=== PATIENT | male | born 1970 | race Caucasian/White ===

== ENCOUNTER → 2017-04-18 | Outpatient (CLI) | payer OTHER ==
[~2017-04-18] MED LIST: CATHETER FLUSH 10 ML SYR IV PRN; REGADENOSON 0.4 MG/5 ML SYR (LEXISCAN) IV ONE
[2017-04-18 13:30] VITALS: BP 209/116
[2017-04-18 13:34] VITALS: BP 205/115
--- NOTE | 2017-04-19 16:40 | STRESS TEST ---
DATE OF SERVICE: 04/18/2017 RESTING AND POST REGADENOSON TECHNETIUM-99M TETROFOSMIN SPECT CT IMAGING ORDERING PHYSICIAN: Dr. Figueroa. CLINICAL DIAGNOSES: Chest discomfort, hypertension, diabetes, obesity. Baseline images were carried out after injection of 10.11 mCi of technitium-99m tetrofosmin. This was followed by 0.4 mg regadenoson and 29.4 mCi of technitium-99m tetrofosmin for stress imaging. The electrocardiogram showed sinus rhythm with nonspecific T-wave abnormality which persisted throughout the study. The patient tolerated the procedure well and did not report any significant symptoms. Review of images at rest and following stress does not indicate any significant perfusion defects consistent with significant myocardial ischemia or infarction. Count uptake appears diminished and the inferior wall both at rest and following regadenoson infusion. This appears to be due to diaphragmatic attenuation. Gated images show normal regional wall motion. Left ventricular ejection fraction is calculated to be 65%. Left ventricular end diastolic volume is 129 mL. TID is absent (1.03). CONCLUSIONS: 1. No evidence of any significant myocardial ischemia or infarction on this study. 2. Normal regional wall motion. 3. Normal global left ventricular systolic function with ejection fraction of 65%. 4. Mild to moderate cardiomegaly. Job ID: [id number] DocumentID: [id number] Dictated Date: 04/18/2017 18:24:47 Material Flow Analyst Date: 04/19/2017 01:12:22 Dictated By: KIM FIGUEROA MD, MA, FACP, FACC,
== END ==
LOC: CARD 10:42
PROVIDERS: ATTEND Internal Medicine Cardiovascular Disease
DX: I10 Essential (primary) hypertension (principal); E11.9 Type 2 diabetes mellitus without complications; E66.09 Other obesity due to excess calories; E78.1 Pure hyperglyceridemia; R74.8 Abnormal levels of other serum enzymes; R07.89 Other chest pain
CPT/HCPCS: 78452; 93017

== ENCOUNTER 2019-12-13 13:26 | Inpatient (IN) | payer BC, OTHER ==
[2019-12-13] VITALS (8 sets, daily range): BP systolic 161–204; BP diastolic 88–127
[~2019-12-13] VITALS: Ht 182 cm; Wt 125.2 kg
[2019-12-13] MEDS ORDERED: ASPIRIN 81 MG CHEW (CHILDREN'S ASA) PO ONE (13:45)
[2019-12-13] MEDS: NITROGLYCERIN 0.4 MG SL TABS BTL 25'S SL PRN ×2 (13:51→14:12)
--- NOTE | 2019-12-13 13:56 | ED Chest Pain ---
General Chief Complaint: Cardiac/General Problems Stated Complaint: BP ISSUES Nursing Triage Note: PT TO ED W/ C/O ELEVATED BLOOD PRESSURE, RODRIGUEZ ET CHEST PRESSURE ONSET DAILY, WORSE TODAY AFTER BEING SEEN AT [facility] Nursing Sepsis Screen: No Definite Risk Source: patient Exam Limitations: no limitations History of Present Illness Date Seen by Provider: Dec 13, 2019 Time Seen by Provider: 13:50 Initial Comments To ER with hypertension and chest tightness sent over from [facility]. He is on a couple of blood pressure medications but "just hasn't been taking them" for about a month. He's been focusing on his diabetes and getting control of it he states. During his primary care visit this morning he was noted to have blood pressure of 220 systolic with complaints of recurrent chest tightn ess and headache. He's been having the chest tightness intermittently for about a month. He had a negative stress test done here by Dr. Figueroa in March 2017. Timing/Duration: changing over time, intermittent Severity/Quality: moderate Location: central Radiation: no radiation Activities at Onset: none ASA po COTTON TIER: No NTG SL COTTON TIER: No Allergies and Home Medications Allergies Coded Allergies: codeine (Verified Allergy, Unknown, 12/13/19) N/V/D ondansetron (Verified Allergy, Unknown, 12/13/19) Patient Home Medication List Home Medication List Reviewed: Yes Review of Systems Review of Systems Constitutional: see HPI EENTM: No Symptoms Reported Respiratory: No Symptoms Reported Cardiovascular: See HPI, Chest Pain Gastrointestinal: See HPI Genitourinary: No Symptoms Reported Skin: no symptoms reported Psychiatric/Neurological: No Symptoms Reported Past Booxxmk-Ftblvb-Lrodme Hx Patient Social History Alcohol Use: Rarely Uses Recreational Drug Use: No Smoking Status: Never a Smoker Recent Foreign Travel: No Contact w/Someone Who Travel: No Recent Infectious Disease Expo: No Past Medical History Surgeries: Yes (LAP NISSIN) Gallbladder Respiratory: Yes Sleep Apnea Currently Using CPAP: Yes Cardiac: Yes Hypertension Neurological: No Genitourinary: No Gastrointestinal: Yes Gastroesophageal Reflux Musculoskeletal: No Endocrine: Yes Diabetes, Insulin dep HEENT: No Cancer: No Psychosocial: No Integumentary: No Blood Disorders: No Physical Exam Vital Signs Vital Signs - First Documented 12/13/19 13:38 Temp 36.8 Pulse 94 Resp 20 B/P (MAP) 219/139 (165) Pulse Ox 96 O2 Delivery Room Air Capillary Refill : Less Than 3 Seconds Height, Weight, BMI Height: '" Weight: lbs. oz. kg; 23.00 BMI Method: General Appearance: No Apparent Distress, WD/WN Respiratory: No Accessory Muscle Use, No Respiratory Distress Cardiovascular: Regular Rate, Rhythm, Normal Peripheral Pulses Gastrointestinal: Non Tender, Soft Neurologic/Psychiatric: Alert, Oriented x3 Skin: Normal Color, Warm/Dry Progress/Results/Core Measures Results/Orders Lab Results Laboratory Tests Test 12/13/19 13:58 12/13/19 14:02 Range/Units White Blood Count 8.1 4.3-11.0 10^3/uL Red Blood Count 6.14 H 4.35-5.85 10^6/uL Hemoglobin 16.8 13.3-17.7 G/DL Hematocrit 48 40-54 % Mean Corpuscular Volume 78 L 80-99 FL Mean Corpuscular Hemoglobin 27 25-34 PG Mean Corpuscular Hemoglobin Concent 35 32-36 G/DL Red Cell Distribution Width 14.1 10.0-14.5 % Platelet Count 176 130-400 10^3/uL Mean Platelet Volume 10.7 H 7.4-10.4 FL Neutrophils (%) (Auto) 70 42-75 % Lymphocytes (%) (Auto) 20 12-44 % Monocytes (%) (Auto) 6 0-12 % Eosinophils (%) (Auto) 3 0-10 % Basophils (%) (Auto) 0 0-10 % Neutrophils # (Auto) 5.7 1.8-7.8 X 10^3 Lymphocytes # (Auto) 1.7 1.0-4.0 X 10^3 Monocytes # (Auto) 0.5 0.0-1.0 X 10^3 Eosinophils # (Auto) 0.3 0.0-0.3 10^3/uL Basophils # (Auto) 0.0 0.0-0.1 10^3/uL Prothrombin Time 12.7 12.2-14.7 SEC INR Comment 0.9 0.8-1.4 Activated Partial Thromboplast Time 29 24-35 SEC Sodium Level 137 135-145 MMOL/L Potassium Level 3.9 3.6-5.0 MMOL/L Chloride Level 104 98-107 MMOL/L Carbon Dioxide Level 23 21-32 MMOL/L Anion Gap 10 5-14 MMOL/L Blood Urea Nitrogen 20 H 7-18 MG/DL Creatinine 1.33 H 0.60-1.30 MG/DL Estimat Glomerular Filtration Rate 57 BUN/Creatinine Ratio 15 Glucose Level 508 *H 70-105 MG/DL Calcium Level 9.2 8.5-10.1 MG/DL Corrected Calcium 9.0 8.5-10.1 MG/DL Magnesium Level 1.9 1.6-2.4 MG/DL Total Bilirubin 0.7 0.1-1.0 MG/DL Aspartate Amino Transf (AST/SGOT) 30 5-34 U/L Alanine Aminotransferase (ALT/SGPT) 49 0-55 U/L Alkaline Phosphatase 113 40-136 U/L Myoglobin 42.1 10.0-92.0 NG/ML Troponin I 0.033 H <0.028 NG/ML B-Type Natriuretic Peptide 321.1 H <100.0 PG/ML Total Protein 7.2 6.4-8.2 GM/DL Albumin 4.3 3.2-4.5 GM/DL Urine Opiates Screen NEGATIVE NEGATIVE Urine Oxycodone Screen NEGATIVE NEGATIVE Urine Methadone Screen NEGATIVE NEGATIVE Urine Propoxyphene Screen NEGATIVE NEGATIVE Urine Barbiturates Screen NEGATIVE NEGATIVE Ur Tricyclic Antidepressants Screen NEGATIVE NEGATIVE Urine Phencyclidine Screen NEGATIVE NEGATIVE Urine Amphetamines Screen NEGATIVE NEGATIVE Urine Methamphetamines Screen NEGATIVE NEGATIVE Urine Benzodiazepines Screen NEGATIVE NEGATIVE Urine Cocaine Screen NEGATIVE NEGATIVE Urine Cannabinoids Screen NEGATIVE NEGATIVE My Orders Orders - BILL RODRIGUEZ APRN Cbc With Automated Diff (12/13/19 13:43) Magnesium (12/13/19 13:43) Chest 1 View, Ap/Pa Only (12/13/19 13:43) Ekg Tracing (12/13/19 13:43) Comprehensive Metabolic Panel (12/13/19 13:43) Myoglobin Serum (12/13/19 13:43) Protime With Inr (12/13/19 13:43) Partial Thromboplastin Time (12/13/19 13:43) O2 (12/13/19 13:43) Monitor-Rhythm Ecg Trace Only (12/13/19 13:43) Lipid Panel (12/14/19 06:00) Ed Iv/Invasive Line Start (12/13/19 13:43) Troponin I (12/13/19 13:43) Nitroglycerin 0.4 Mg Btl 25's (Nitrostat (12/13/19 13:45) Aspirin Chewable Tablet (Baby Aspirin Ch (12/13/19 13:45) Drug Screen Stat (Urine) (12/13/19 13:43) BNP (12/13/19 13:43) Metoprolol Tartrate Injection (Lopressor (12/13/19 14:45) Ns Iv 1000 Ml (Sodium Chloride 0.9%) (12/13/19 14:45) Insulin (Regular) Human (Humulin R (Per (12/13/19 14:45) Medications Given in ED Current Medications Medications Dose Ordered Sig/Master Route Start Time Stop Time Status Last Admin Dose Admin Aspirin 324 mg ONCE ONCE PO 12/13/19 13:45 12/13/19 13:46 DC 12/13/19 13:51 324 MG Insulin Human Regular 10 unit ONCE ONCE SC 12/13/19 14:45 12/13/19 14:47 DC 12/13/19 14:53 10 UNIT Metoprolol Tartrate 5 mg ONCE ONCE IV 12/13/19 14:45 12/13/19 14:47 DC 12/13/19 14:53 5 MG Nitroglycerin 0.4 mg UD PRN SL 12/13/19 13:45 12/13/19 15:44 DC 12/13/19 14:12 0.4 MG Vital Signs/I&O 12/13/19 13:38 Temp 36.8 Pulse 94 Resp 20 B/P (MAP) 219/139 (165) Pulse Ox 96 O2 Delivery Room Air Blood Pressure Mean: 165 Diagnostic Imaging Diagonstic Imaging: Xray, CT Comments NAME: PEPPER PHELPS [facility] REC#: [id number] PT STATUS: REG ER : 1970 PHYSICIAN: BILL RODRIGUEZ APRN ADMIT DATE: 12/13/19/ER Draft Date of Exam:12/13/19 CHEST 1 VIEW, AP/PA ONLY Indication: Hypertension. Findings: No focal consolidation. The heart size itself is probably within normal limits. There may be mild distention of the central vascularity. There is some crowding of the lung markings owing to poor inspiratory volume. Impression: Limited inspiratory volume across the lung markings, borderline vascular congestion, otherwise negative. Dictated on workstation # [id number] Dict: 12/13/19 1425 Trans: 12/13/[address] [facility] [id number] Interpreted by: LEXA JOHNSTON Electronically signed by: Departure Communication (Admissions) Time/Spoke to Admitting Phy: 15:[address] Cuellar and Dr plascencia. Will admit to ICU. 1443-his chest pain has reduced from a 12/29/00. Blood pressure has improved from 239/119 at triage down to a current 183/119. Heart rate is in the 80s. Sinus. Impression Primary Impression: Chest pain Qualified Codes: R07.9 - Chest pain, unspecified Additional Impressions: Uncontrolled diabetes mellitus Qualified Codes: E11.65 - Type 2 diabetes mellitus with hyperglycemia Hypertensive urgency Disposition: ADMITTED INPATIENT Condition: Critical Admissions Decision to Admit Reason: Admit from ER (General) Decision to Admit/Date: Dec 13, 2019 Time/Decision to Admit Time: 15:12 Departure-Patient Inst. Referrals: JUNIOR NARAYANAN MD (PCP/Family) Primary Care Physician BILL RODRIGUEZ APRN Dec 13, 2019 13:56
[2019-12-13 14:07] LABS: BASOPHILS % (AUTO) 0 % (0-10); EOSINOPHILS # (AUTO) 0.3 10^3/uL (0.0-0.3); EOSINOPHILS % (AUTO) 3 % (0-10); HEMATOCRIT 48 % (40-54); HEMOGLOBIN 16.8 G/DL (13.3-17.7); LYMPHOCYTES # (AUTO) 1.7 X 10^3 (1.0-4.0); LYMPHOCYTES % (AUTO) 20 % (12-44); MEAN CORPUSCULAR HEMOGLOBIN 27 PG (25-34); MEAN CORPUSCULAR HGB CONC 35 G/DL (32-36); MEAN CORPUSCULAR VOLUME 78 FL (80-99); MEAN PLATELET VOLUME 10.7 FL (7.4-10.4); MONOCYTES # (AUTO) 0.5 X 10^3 (0.0-1.0); MONOCYTES % (AUTO) 6 % (0-12); NEUTROPHILS # (AUTO) 5.7 X 10^3 (1.8-7.8); NEUTROPHILS % (AUTO) 70 % (42-75); PLATELET COUNT 176 10^3/uL (130-400); RED CELL DISTRIBUTION WIDTH 14.1 % (10.0-14.5); WHITE BLOOD COUNT 8.1 10^3/uL (4.3-11.0)
[2019-12-13 14:21] LABS: AMPHETAMINE SCREEN, URINE NEGATIVE (NEGATIVE); BENZODIAZEPINES SCREEN URINE NEGATIVE (NEGATIVE); CANNABINOID SCREEN, URINE NEGATIVE (NEGATIVE); COCAINE SCREEN URINE NEGATIVE (NEGATIVE); METHAMPHETAMINE SCREEN URINE S NEGATIVE (NEGATIVE); OPIATE SCREEN URINE NEGATIVE (NEGATIVE)
[2019-12-13 14:22] LABS: BARBITURATE SCREEN URINE NEGATIVE (NEGATIVE); METHADONE STAT NEGATIVE (NEGATIVE); OXYCODONE STAT NEGATIVE (NEGATIVE); PROPOXYPHENE STAT NEGATIVE (NEGATIVE); TRICYCLIC ANTIDEPRESSANTS SCRE NEGATIVE (NEGATIVE)
[2019-12-13 14:24] LABS: INR 0.9 (0.8-1.4); PROTHROMBIN TIME PATIENT 12.7 SEC (12.2-14.7)
--- NOTE | 2019-12-13 14:33 | Diagnostic Imaging Report ---
Indication: Hypertension. Findings: No focal consolidation. The heart size itself is probably within normal limits. There may be mild distention of the central vascularity. There is some crowding of the lung markings owing to poor inspiratory volume. Impression: Limited inspiratory volume across the lung markings, borderline vascular congestion, otherwise negative. Dictated by: Dictated on workstation # [id number]
[2019-12-13 14:35] LABS: ALBUMIN 4.3 GM/DL (3.2-4.5); BILIRUBIN,TOTAL 0.7 MG/DL (0.1-1.0); CALCIUM 9.2 MG/DL (8.5-10.1); CREATININE SERUM 1.33 MG/DL (0.60-1.30); MAGNESIUM 1.9 MG/DL (1.6-2.4); POTASSIUM 3.9 MMOL/L (3.6-5.0); TOTAL PROTEIN 7.2 GM/DL (6.4-8.2)
[2019-12-13] MEDS ORDERED: NS IV 1000 ML 1,000 ML IV SCH (14:45)
[2019-12-13] MEDS ORDERED: inSUlin (REGULAR) HUMAN 1 UNIT/0.01 ML (CHARGE PER UNIT) SC ONE (14:45)
[2019-12-13] MEDS ORDERED: meTOprolol 5 MG/5 ML (LOPRESSOR) VIAL IV ONE ×2 (14:45→21:15)
[2019-12-13] MEDS ORDERED: hydrALAZINE (APESOLINE) 20 MG/ML VIAL ONE (15:42)
[2019-12-13] MEDS: NS IV 1000 ML 1,000 ML IV SCH ×2 (16:06→16:17)
[2019-12-13] MEDS: inSUlin ASPART (NovoLOG) 1 UNIT/0.01 ML (CHARGE PER UNIT) SC SCH ×2 (16:11→22:14)
[2019-12-13] MEDS ORDERED: CATHETER FLUSH 10 ML SYR IV PRN (16:15)
[2019-12-13] MEDS ORDERED: hydrALAZINE (APESOLINE) 20 MG/ML VIAL IV PRN (16:15)
--- NOTE | 2019-12-13 16:16 | Consultation-Cardiology ---
HPI-Cardiology Cardiology Consultation Date of Consultation 12/13/19 Date of Admission Time Seen by Provider: 16:12 Indication: Chest pain HPI 49-year-old gentleman with history of hypertension, diabetes mellitus and sleep apnea, has stopped taking most of his medication for the past months, was in the process of changing his primary care Provider. Seen today and sent to the em ergency room for hypertensive emergency, has been having chest pain on and off described it as tightness in the retrosternal area not radiating, mild dyspnea on exertion, no palpitation, no syncope or near syncopal episodes. No claudication. No pedal edema. Home Medications & Allergies Allergies: Coded Allergies: codeine (Verified Allergy, Unknown, 12/13/19) N/V/D ondansetron (Verified Allergy, Unknown, 12/13/19) Home Medication List Reviewed: Yes ZPF-Szijar-Gollov Hx Patient Social History Marital Status: Employed/Student: employed Alcohol Use: Rarely Uses Recreational Drug Use: No Smoking Status: Never a Smoker Recent Foreign Travel: No Recent Infectious Disease Expo: No Past Medical History Discussed below Family Medical History Family Medical Hx Noncontributory Review of Systems-General Review of Systems Constitutional: see HPI; No chills, No diaphoresis, No dizziness, No fever, No malaise, No weakness, No weight gain, No weight loss, No other EENTM: see HPI Respiratory: see HPI; No cough; dyspnea on exertion; No hemoptysis, No orthopnea, No phlegm, No short of breath, No stridor, No wheezing, No other Cardiovascular: see HPI, chest pain; No edema, No Hx of Intervention, No palpitations, No syncope, No vascular heart diseas, No other Gastrointestinal: no symptoms reported, see HPI Genitourinary: no symptoms reported, see HPI Musculoskeletal: no symptoms reported, see HPI Skin: no symptoms reported Psychiatric/Neurological: No Symptoms Reported Reviewed Test Results Reviewed Test Results Lab Laboratory Tests Test 12/13/19 13:58 12/13/19 14:02 12/13/19 15:54 Range/Units White Blood Count 8.1 4.3-11.0 10^3/uL Red Blood Count 6.14 H 4.35-5.85 10^6/uL Hemoglobin 16.8 13.3-17.7 G/DL Hematocrit 48 40-54 % Mean Corpuscular Volume 78 L 80-99 FL Mean Corpuscular Hemoglobin 27 25-34 PG Mean Corpuscular Hemoglobin Concent 35 32-36 G/DL Red Cell Distribution Width 14.1 10.0-14.5 % Platelet Count 176 130-400 10^3/uL Mean Platelet Volume 10.7 H 7.4-10.4 FL Neutrophils (%) (Auto) 70 42-75 % Lymphocytes (%) (Auto) 20 12-44 % Monocytes (%) (Auto) 6 0-12 % Eosinophils (%) (Auto) 3 0-10 % Basophils (%) (Auto) 0 0-10 % Neutrophils # (Auto) 5.7 1.8-7.8 X 10^3 Lymphocytes # (Auto) 1.7 1.0-4.0 X 10^3 Monocytes # (Auto) 0.5 0.0-1.0 X 10^3 Eosinophils # (Auto) 0.3 0.0-0.3 10^3/uL Basophils # (Auto) 0.0 0.0-0.1 10^3/uL Prothrombin Time 12.7 12.2-14.7 SEC INR Comment 0.9 0.8-1.4 Activated Partial Thromboplast Time 29 24-35 SEC Sodium Level 137 135-145 MMOL/L Potassium Level 3.9 3.6-5.0 MMOL/L Chloride Level 104 98-107 MMOL/L Carbon Dioxide Level 23 21-32 MMOL/L Anion Gap 10 5-14 MMOL/L Blood Urea Nitrogen 20 H 7-18 MG/DL Creatinine 1.33 H 0.60-1.30 MG/DL Estimat Glomerular Filtration Rate 57 BUN/Creatinine Ratio 15 Glucose Level 508 *H 70-105 MG/DL Calcium Level 9.2 8.5-10.1 MG/DL Corrected Calcium 9.0 8.5-10.1 MG/DL Magnesium Level 1.9 1.6-2.4 MG/DL Total Bilirubin 0.7 0.1-1.0 MG/DL Aspartate Amino Transf (AST/SGOT) 30 5-34 U/L Alanine Aminotransferase (ALT/SGPT) 49 0-55 U/L Alkaline Phosphatase 113 40-136 U/L Myoglobin 42.1 10.0-92.0 NG/ML Troponin I 0.033 H <0.028 NG/ML B-Type Natriuretic Peptide 321.1 H <100.0 PG/ML Total Protein 7.2 6.4-8.2 GM/DL Albumin 4.3 3.2-4.5 GM/DL Urine Opiates Screen NEGATIVE NEGATIVE Urine Oxycodone Screen NEGATIVE NEGATIVE Urine Methadone Screen NEGATIVE NEGATIVE Urine Propoxyphene Screen NEGATIVE NEGATIVE Urine Barbiturates Screen NEGATIVE NEGATIVE Ur Tricyclic Antidepressants Screen NEGATIVE NEGATIVE Urine Phencyclidine Screen NEGATIVE NEGATIVE Urine Amphetamines Screen NEGATIVE NEGATIVE Urine Methamphetamines Screen NEGATIVE NEGATIVE Urine Benzodiazepines Screen NEGATIVE NEGATIVE Urine Cocaine Screen NEGATIVE NEGATIVE Urine Cannabinoids Screen NEGATIVE NEGATIVE Glucometer 350 H 70-110 MG/DL Physical Exam Physical Exam Vital Signs Vital Signs - First Documented 12/13/19 13:38 Temp 36.8 Pulse 94 Resp 20 B/P (MAP) 219/139 (165) Pulse Ox 96 O2 Delivery Room Air Capillary Refill : Less Than 3 Seconds Height, Weight, BMI Height: '" Weight: lbs. oz. kg; 23.00 BMI Method: General Appearance: No Apparent Distress, WD/WN Respiratory: No Accessory Muscle Use, No Respiratory Distress Cardiovascular: Regular Rate, Rhythm, No Edema, Normal Peripheral Pulses, Gallop/S3 Gastrointestinal: Non Tender, Soft Neurologic/Psychiatric: Alert, Oriented x3 Skin: Normal Color, Warm/Dry A/P-Cardiology Admission Diagnosis Chest pain Hypertensive emergency Diabetes mellitus COPD Assessment/Plan Chest pain resembling angina, mild elevation troponin probably due to hypertension, started on IV fluid, monitor trend, monitor EKG possible cardiac catheterization in the morning Hypertensive emergency, not taking any medication, starting on metoprolol and lisinopril, I will add nitroglycerin drip if needed. Questionable hyperlipidemia I will evaluate lipid profile. Diabetes mellitus, poor control, noncompliant, receiving IV fluid, monitor renal function Chronic renal insufficiency, started on IV fluids, monitor renal function COPD/obstructive sleep apnea, was on C Pap in the past, has stopped using it. Probably need reevaluation for C Pap Obesity, has lost about 20 pounds over the past 2 months, encouraged to continue with weight loss program Clinical Quality Measures AMI/AHF: ASA po Prior to arrival: No DVT/VTE Risk/Contraindication: Risk Factor Score Per Nursin RFS Level Per Nursing on Admit: 1=Low/No VTE PPX SALVADOR HAWKINS MD Dec 13, 2019 16:16
[2019-12-13] MEDS: lisINopril 20 MG (PRINIVIL) TABLET PO SCH (16:29)
[2019-12-13] MEDS ORDERED: ACETAMINOPHEN 325 MG TABLET PO PRN (16:30)
[2019-12-13] MEDS: ENOXAPARIN 40 MG/0.4 ML (LOVENOX) SYR SC SCH (16:30)
--- NOTE | 2019-12-13 20:37 | NUR ---
This RN contacted Dr. Velazquez to notify that patient is complaining of headache 06/08, states that "The Tylenol I had earlier did nothing for it". Patient still hypertensive 178/109 and HR 82. New order received a this time for Percocet 5/325 mg PO one time now and Lopressor 5mg IV one time now.
--- NOTE | 2019-12-13 20:37 | History & Physical-Hospitalist ---
History of Present Illness HPI/Chief Complaint 49 yo male presents with increased BP and chest pressure. Has been off his BP and DM meds for over a month due to financial concerns and frustrations. Has had 2 nitro with improved BP and decreased CP Source: patient Exam Limitations: no limitations Date Seen 12/13/19 Time Seen by a Provider: 14:00 Attending Physician Miley Rodrigues MD PCP Evelyn Navarro MD Referring Physician Date of Admission Dec 13, 2019 at 14:50 Home Medications & Allergies Home Medications Reviewed patient Home Medication Reconciliation performed by pharmacy medication reconciliations donor support technician and/or nursing. Patients Allergies have been reviewed. Allergies Allergies Coded Allergies codeine (Verified Allergy, Unknown, 12/13/19) N/V/D fish derived (Unverified Allergy, Unknown, 12/13/19) ondansetron (Verified Allergy, Unknown, 12/13/19) Past Whrprro-Iaivyo-Xlzoip Hx Past Med/Social Hx: Reviewed Nursing Past Med/Soc Hx Patient Social History Marrital Status: Employed/Student: employed Alcohol Use: Rarely Uses Recreational Drug Use: No Smoking Status: Never a Smoker Recent Foreign Travel: No Contact w/other who traveled: No Recent Infectious Disease Expo: No Past Medical History Surgeries: Gallbladder Currently Using CPAP: Yes Cardiac: Hypertension Gastrointestinal: Gastroesophageal Reflux Endocrine: Diabetes, Insulin dep History of Blood Disorders: No Review of Systems Constitutional: see HPI EENTM: no symptoms reported Respiratory: dyspnea on exertion Cardiovascular: chest pain Gastrointestinal: no symptoms reported Musculoskeletal: back pain, joint pain Skin: no symptoms reported Psychiatric/Neurological: No Symptoms Reported Physical Exam Physical Exam Vital Signs Vital Signs - First Documented 12/13/19 13:38 Temp 36.8 Pulse 94 Resp 20 B/P (MAP) 219/139 (165) Pulse Ox 96 O2 Delivery Room Air Capillary Refill : Less Than 3 Seconds Height, Weight, BMI Height: '" Weight: lbs. oz. kg; 23.00 BMI Method: General Appearance: No Apparent Distress, WD/WN, Obese HEENT: Normal ENT Inspection Neck: Full Range of Motion, Normal Inspection, Non Tender, Supple Respiratory: Chest Non Tender, Lungs Clear, Normal Breath Sounds, No Accessory Muscle Use, No Respiratory Distress Cardiovascular: Regular Rate, Rhythm, No Edema, No Gallop, No JVD, No Murmur Gastrointestinal: Normal Bowel Sounds, No Organomegaly, No Pulsatile Mass, Non Tender, Soft Rectal: Deferred Back: No CVA Tenderness Extremity: Normal Capillary Refill, Normal Range of Motion, Non Tender, No Calf Tenderness, No Pedal Edema Neurologic/Psychiatric: Alert, Oriented x3, No Motor/Sensory Deficits, Normal Mood/Affect, turf keeper II-XII Norm as Tested Skin: Normal Color, Warm/Dry Results Results/Procedures Labs Laboratory Tests 12/13/19 13:58 Patient resulted labs reviewed. Imaging: Reviewed Imaging Report Assessment/Plan Admission Diagnosis chest pain Hypertensive urgency DM out of control secondary to non compliance Mandeep - noncompliant plan to admit- r/o and CV consult Admission Status: Observation Clinical Quality Measures AMI/AHF: ASA po Prior to arrival: No DVT/VTE Risk/Contraindication: Risk Factor Score Per Nursin RFS Level Per Nursing on Admit: 1=Low/No VTE PPX MILEY RODRIGUES MD Dec 13, 2019 20:37
[2019-12-13] MEDS ORDERED: oxyCODONE/APAP 5/325MG (PERCOCET 5) TABLET PO ONE (21:15)
[2019-12-13] MEDS: meTOprolol TARTRATE 25 MG (LOPRESSOR) TABLET PO SCH (22:06)
--- NOTE | 2019-12-13 23:32 | NUR ---
This RN notified Dr. Velazquez that patient BP 162/100 and HR 73. New order received for Clonidine 0.1mg one time now. Pt rating headache 11/08.
[2019-12-13] MEDS ORDERED: cloNIDine 0.1 MG (CATAPRES) TAB ONE (23:33)
[2019-12-13] MEDS ORDERED: cloNIDine 0.1 MG (CATAPRES) TAB PO ONE (23:45)
[2019-12-14] VITALS (21 sets, daily range): BP systolic 129–186; BP diastolic 72–121
[2019-12-14] MEDS: NS IV 1000 ML 1,000 ML IV SCH ×4 (00:01→13:36)
[2019-12-14 03:35] LABS: BASOPHILS % (AUTO) 1 % (0-10); EOSINOPHILS # (AUTO) 0.2 10^3/uL (0.0-0.3); EOSINOPHILS % (AUTO) 2 % (0-10); HEMATOCRIT 44 % (40-54); HEMOGLOBIN 15.2 G/DL (13.3-17.7); LYMPHOCYTES # (AUTO) 2.7 X 10^3 (1.0-4.0); LYMPHOCYTES % (AUTO) 31 % (12-44); MEAN CORPUSCULAR HEMOGLOBIN 28 PG (25-34); MEAN CORPUSCULAR HGB CONC 34 G/DL (32-36); MEAN CORPUSCULAR VOLUME 81 FL (80-99); MONOCYTES # (AUTO) 0.7 X 10^3 (0.0-1.0); MONOCYTES % (AUTO) 8 % (0-12); NEUTROPHILS % (AUTO) 58 % (42-75); PLATELET COUNT 170 10^3/uL (130-400); WHITE BLOOD COUNT 8.7 10^3/uL (4.3-11.0)
[2019-12-14 03:55] LABS: ALANINE AMINOTRANSFERASE 39 U/L (0-55); ALBUMIN 3.5 GM/DL (3.2-4.5); ALKALINE PHOSPHATASE 74 U/L (40-136); BILIRUBIN,TOTAL 0.5 MG/DL (0.1-1.0); BUN/CREATININE RATIO 15; CALCIUM 8.5 MG/DL (8.5-10.1); CARBON DIOXIDE 22 MMOL/L (21-32); CHLORIDE 108 MMOL/L (98-107); CHOLESTEROL 165 MG/DL (< 200); CREATININE SERUM 1.16 MG/DL (0.60-1.30); GFR ESTIMATED > 60; GLUCOSE 317 MG/DL (70-105); HDL CHOLESTEROL 27 MG/DL (40-60); PHOSPHORUS 3.6 MG/DL (2.3-4.7); POTASSIUM 3.7 MMOL/L (3.6-5.0); SODIUM 140 MMOL/L (135-145); TOTAL PROTEIN 5.7 GM/DL (6.4-8.2); TRIGLYCERIDES 367 MG/DL (<150); VLDL CHOLESTEROL 73 MG/DL (5-40)
[2019-12-14] MEDS ORDERED: LORazepam INJ 2 MG/ML (ATIVAN) VIAL IVP PRN (04:30)
[2019-12-14] MEDS ORDERED: ONDANSETRON 4 MG/2 ML (SDV) Z0FRAN IVP PRN (04:30)
[2019-12-14] MEDS ORDERED: morphine INJ 4 MG/ML 1 ML (VIAL/SYRINGE) ONE (04:33)
[2019-12-14] MEDS ORDERED: LACTATED RINGERS 1,000 ML IV ONE (04:34)
[2019-12-14] MEDS ORDERED: ONDANSETRON 4 MG/2 ML (SDV) Z0FRAN ONE (04:38)
[2019-12-14] MEDS: LACTATED RINGERS 1,000 ML IV SCH ×2 (04:44→10:42)
[2019-12-14] MEDS: POTASSIUM CL 10MEQ/50ML IVPB 50 ML IV SCH ×3 (04:44→07:01)
[2019-12-14] MEDS: morphine INJ 4 MG/ML 1 ML (VIAL/SYRINGE) IVP PRN ×2 (04:44→05:14)
--- NOTE | 2019-12-14 04:56 | Pulmonary Consultation ---
History of Present Illness History of Present Illness Date Seen by Provider: Dec 14, 2019 Time Seen by Provider: 04:53 Date of Admission Reason for Visit: Chest pain History of Present Illness 49 yo male presented to ED secondary to worsening persistent chest pain and HTN. He Has been off his BP and DM meds for over a month due to financial concerns and frustrations. Has had 2 nitro with improved BP and decreased CP. Cardiology is following and planning possible heart cath today secondary to CP and elevated troponin. Allergies and Home Medications Allergies Coded Allergies: codeine (Verified Allergy, Unknown, 12/13/19) N/V/D fish derived (Unverified Allergy, Unknown, 12/13/19) ondansetron (Verified Allergy, Unknown, 12/13/19) Past Jowlbfj-Typngz-Qvnutx Hx Past Med/Social Hx: Reviewed Nursing Past Med/Soc Hx Patient Social History Alcohol Use: Rarely Uses Recreational Drug Use: No Smoking Status: Never a Smoker Recent Foreign Travel: No Contact w/Someone Who Travel: No Recent Infectious Disease Expo: No Physical Abuse: No Sexual Abuse: No Mistreated: No Fear: No Past Medical History Surgeries: Yes (LAP NISSIN) Gallbladder Respiratory: Yes Sleep Apnea Currently Using CPAP: Yes Cardiac: Yes Hypertension Neurological: No Genitourinary: No Gastrointestinal: Yes Gastroesophageal Reflux Musculoskeletal: No Endocrine: Yes Diabetes, Insulin dep HEENT: No Cancer: No Psychosocial: No Integumentary: No Blood Disorders: No Review of Systems Time Seen by Provider: 04:55 Sepsis Event Evaluation Height, Weight, BMI Height: '" Weight: lbs. oz. kg; 23.00 BMI Method: Exam Exam Vital Signs Date Time Temp Pulse Resp B/P (MAP) Pulse Ox O2 Delivery O2 Flow Rate FiO2 12/14/19 03:00 70 21 142/84 (103) 97 Nasal Cannula 2.00 12/14/19 02:00 74 17 159/102 (121) 90 Nasal Cannula 2.00 12/14/19 01:00 76 12/14/19 01:00 76 16 161/110 (127) 98 Nasal Cannula 2.00 12/14/19 00:00 Room Air 12/14/19 00:00 80 19 154/72 (99) 97 Nasal Cannula 2.00 12/13/19 23:41 Nasal Cannula 2.00 12/13/19 23:34 36.3 12/13/19 23:00 71 20 172/102 (125) 93 Room Air 12/13/19 22:00 81 14 178/106 (130) 97 Room Air 12/13/19 21:00 84 20 171/104 (126) 94 Room Air 12/13/19 20:28 36.8 12/13/19 20:00 Room Air 12/13/19 20:00 81 19 169/104 (125) 95 Room Air 12/13/19 19:00 86 12/13/19 19:00 85 22 161/88 (112) 98 Room Air 12/13/19 18:00 87 19 182/96 (124) 94 Room Air 12/13/19 17:00 84 27 180/109 (132) 96 Room Air 12/13/19 16:00 36.8 12/13/19 15:40 36.9 80 16 204/127 (152) 94 Room Air 12/13/19 15:30 Room Air 12/13/19 15:19 81 18 193/126 99 Room Air 12/13/19 13:38 36.8 94 20 219/139 (165) 96 Room Air I & O 12/14/19 07:00 Intake Total 3200 ml Output Total 1350 ml Balance 1850 ml Height & Weight Height: '" Weight: lbs. oz. kg; 23.00 BMI Method: General Appearance: No Apparent Distress, WD/WN, Obese HEENT: Normal ENT Inspection Neck: Full Range of Motion, Normal Inspection, Non Tender, Supple Respiratory: Chest Non Tender, Lungs Clear, Normal Breath Sounds, No Accessory Muscle Use, No Respiratory Distress Cardiovascular: Regular Rate, Rhythm, No Edema, No Gallop, No JVD, No Murmur Capillary Refill: Less Than 3 Seconds Extremity: Normal Capillary Refill, Normal Range of Motion, Non Tender, No Calf Tenderness, No Pedal Edema Neurologic/Psychiatric: Alert, Oriented x3, No Motor/Sensory Deficits, Normal Mood/Affect, predatory animal trapper II-XII Norm as Tested Skin: Normal Color, Warm/Dry Results Lab Laboratory Tests 12/13/19 13:58 12/14/19 03:15 12/14/19 03:18 Assessment/Plan Assessment/Plan chest pain with NSTEMI -Cardiology folowoing Hypertensive urgency -Improved continue meds and monitor DM out of control secondary to non compliance Mandeep - noncompliant ARMINDA HOLLEY DO Dec 14, 2019 04:55
[2019-12-14] MEDS: inSUlin ASPART (NovoLOG) 1 UNIT/0.01 ML (CHARGE PER UNIT) SC SCH ×4 (05:01→20:45)
[2019-12-14] MEDS ORDERED: POTASSIUM CL 10MEQ/50ML IVPB 50 ML IV SCH (06:00)
[2019-12-14] MEDS ORDERED: MAGNESIUM 1 GM/100 ML IVPB 100 ML IV SCH (06:00)
[2019-12-14] MEDS ORDERED: KCL 20 MEQ TAB (K-DUR) PO SCH (06:00)
--- NOTE | 2019-12-14 06:00 | NUR ---
Pt c/o of nausea. He had Zofran listed as an allergy, this RN asked what reaction he had and he said it "made me sick to my stomach". Pt agreed to take Zofran for his current nausea. This RN followed up with patient and he stated it "made me feel better, I am not nauseous anymore". This RN asked patient if I could take Zofran off his allergy list and he agreed.
--- NOTE | 2019-12-14 07:59 | Diagnostic Imaging Report ---
INDICATION: Hypertensive urgency. TECHNIQUE: Single view chest 3:52 AM. CORRELATION STUDY: 12/13/2019 FINDINGS: Cardiac enlargement with slightly rounded configuration. Vasculature overall within normal limits. The lungs are clear with no consolidating infiltrate. There is no significant effusion or pneumothorax. Slight asymmetrically elevated right diaphragm. IMPRESSION: 1. Cardiac enlargement without evidence for failure. Slight rounded configuration of the heart. This can be seen with underlying cardiomyopathy or pericardial effusion. Dictated by: Dictated on workstation # [id number]
[2019-12-14] MEDS: ASPIRIN E.C. 81 MG (ECOTRIN) TAB PO SCH (08:27)
[2019-12-14] MEDS: lisINopril 20 MG (PRINIVIL) TABLET PO SCH (08:27)
[2019-12-14] MEDS: meTOprolol TARTRATE 25 MG (LOPRESSOR) TABLET PO SCH ×2 (08:27→20:45)
[2019-12-14] MEDS ORDERED: ASPIRIN 81 MG CHEW (CHILDREN'S ASA) PO SCH (09:00)
[2019-12-14] MEDS ORDERED: meTOprolol SUCCINATE 100 MG (TOPROL XL) TAB PO SCH (09:00)
--- NOTE | 2019-12-14 10:10 | Cardiology Progress Note ---
Subjective Date Seen by Provider: Dec 14, 2019 Time Seen by Provider: 10:08 Subjective/Events-last exam Patient is sitting in bed, complaint of fatigue, no chest pain. No palpitation Review of Systems General: No Chills, No Night Sweats; Fatigue; No Malaise, No Appetite, No Other HEENT: No Head Aches, No Visual Changes, No Eye Pain, No Ear Pain, No Dysphasia, No Sinus Congestion, No Post Nasal Drip, No Sore Throat, No Other Pulmonary: No Dyspnea, No Cough, No Pleuritic Chest Pain, No Other Cardiovascular: No: Chest Pain, Palpitations, Orthopnea, Paroxysmal Noc. Dyspnea, Edema, Lt Headedness, Other Objective-Cardiology Exam Last Set of Vital Signs Vital Signs 12/14/19 12/14/19 05:00 09:00 Pulse 76 Resp 14 B/P (MAP) 179/112 (134) Pulse Ox 97 O2 Delivery Nasal Cannula O2 Flow Rate 2.00 Capillary Refill : Less Than 3 Seconds I&O Intake and Output 12/14/19 00:00 Intake Total 3200 ml Output Total 1350 ml Balance 1850 ml Intake Oral 1200 ml IV Total 2000 ml Output Urine Total 1350 ml Daily Weight Change No General: Alert, Oriented X3, Cooperative HEENT: Atraumatic, PERRLA Neck: Supple, No JVD, No Thyromegaly Lungs: Clear to Auscultation, Normal Air Movement Heart: Regular Rate, Normal S1, Normal S2, No Murmurs, Other (S3 present) Abdomen: Normal Bowel Sounds, Soft, No Tenderness, No Hepatosplenomegaly, No Masses Extremities: No Clubbing, No Cyanosis, No Edema, Normal Pulses, No Tenderness/Swelling Skin: No Rashes, No Breakdown, No Significant Lesion Neuro: Normal Gait, Normal Speech, Strength at 5/5 X4 Ext, Normal Tone, Sensation Intact Psych/Mental Status: Mental Status NL, Mood NL Results Lab Laboratory Tests 12/13/19 13:58 12/14/19 03:15 12/14/19 03:18 A/P-Cardiology Admission Diagnosis Chest pain Hypertensive emergency Diabetes mellitus COPD Assessment/Plan Chest pain resembling angina, mild elevation troponin probably due to hypertension, and he to proceed with cardiac catheterization possible PTCA Malignant hypertension, still having elevated blood pressure, I will add clonidine and monitor tolerance and response Hyperlipidemia/hypertriglyceridemia, we will initiate statin and fenofibrate after the cardiac catheterization Diabetes mellitus, poor control, noncompliant, receiving IV fluid, monitor renal function Chronic renal insufficiency, started on IV fluids, monitor renal function COPD/obstructive sleep apnea, was on C Pap in the past, has stopped using it. Probably need reevaluation for C Pap Obesity, has lost about 20 pounds over the past 2 months, encouraged to continue with weight loss program Clinical Quality Measures AMI/AHF: ASA po Prior to arrival: No DVT/VTE Risk/Contraindication: Risk Factor Score Per Nursin RFS Level Per Nursing on Admit: 1=Low/No VTE PPX SALVADOR HAWKINS MD Dec 14, 2019 10:10
--- NOTE | 2019-12-14 10:10 | Cardiac Procedure Note-CS/ASA ---
Pre-Procedure Note Pre-Op Procedure Note H&P Reviewed The H&P was reviewed, patient examined and no changes noted. Date H&P Reviewed: Dec 14, 2019 Time H&P Reviewed: 10:10 Conscious Sedation Pre-Proced Time 10:10 ASA Score 3 For ASA 3 and 4: Consider anesthesia and medical clearance. Also, for patients with a history of failed moderate sedation consider anesthesia. Airway Lungs Heart ASA score ASA 1: a normal healthy patient ASA 2: a patient with a mild systemic disease (mid diabetes, controlled hypertension, obesity x ASA 3: a patient with a severe systemic disease that limits activity (angina, COPD, prior Myocardial infarction) ASA 4: a patient with an incapacitating disease that is a constant threat to life (CHF, renal failure) ASA 5: a moribund patient not expected to survive 24 hrs. (ruptured aneurysm) ASA 6: a declared brain- patient whose organs are being harvested. For emergent operations, add the letter E after the classification Mallampati Classification Grade 3 Sedation Plan Analgesia, Amnesia, Plan communicated to team members, Discussed options with patient/fam, Discussed risks with patient/fam The patient is an appropriate candidate to undergo the planned procedure, sedation, and anesthesia. The patient immediately re-assessed prior to indication. SALVADOR HAWKINS MD Dec 14, 2019 10:10
[2019-12-14] MEDS ORDERED: meTOprolol 5 MG/5 ML (LOPRESSOR) VIAL IV NR (10:15)
[2019-12-14] MEDS: cloNIDine 0.1 MG (CATAPRES) TAB PO SCH ×2 (10:38→20:46)
[2019-12-14] MEDS ORDERED: LIDOCAINE 1% INJ 20 ML 20 ML VIAL ONE (11:19)
[2019-12-14] MEDS ORDERED: NS IV 1000 ML 1,000 ML ONE (11:20)
[2019-12-14] MEDS ORDERED: MIDAZOLAM 5 MG/5 ML (VERSED) VIAL ONE (11:20)
[2019-12-14] MEDS ORDERED: fentaNYL INJECTION 100 MCG/2 ML AMP ONE (11:20)
[2019-12-14] MEDS ORDERED: HEParin (CATH LAB) 2,000 ML IV ONE (11:21)
[2019-12-14] MEDS ORDERED: HEParin 1000 UNIT/ML (10ML VIAL) FOR BOLUS ONE (12:22)
[2019-12-14] MEDS ORDERED: NITRO DRIP 25000 MCG/D5W 0 ML IV ONE (12:23)
[2019-12-14] MEDS ORDERED: ADENOSINE 3 MG/1 ML (ADENOSCAN) 30ML VIAL IV ONE (12:24)
[2019-12-14] MEDS ORDERED: PATIENT MAY USE OWN MEDS, ALL PO SCH (13:00)
--- NOTE | 2019-12-14 13:00 | Cardiac Cath Report ---
Cardiac Cath Report Physician (s)/Public Works Manager (s) Physician SALVADOR HAWKINS MD Pre-Procedure Diagnosis Pre-Procedure Diagnosis: CAD Post-Procedure Note Procedure Start Date: Dec 14, 2019 Name of Procedure: Left heart catheterization Left ventriculogram Abdominal aortogram FFR to the ramus intermedius FFR to the diagonal FFR to LAD Findings/Procedure Note PROCEDURE NOTE: 49 years old gentleman admitted with chest pain, malignant hypertension, had elevation in troponin, brought for cardiac catheterization possible PTCA. After explaining the procedure to the patient, all pros and cons were explained, all questions were answered. The patient signed the consent and then he was placed on the cardiac catheterization laboratory. Groin was prepped SL fashion local anesthesia was used. Sheath placed in the right femoral artery. Lyle right and left catheter were used to access the coronary system. Pigtail was used to access the left ventricular cavity. Left ventriculogram was done Pigtail was pulled down to the abdominal aorta and abdominal aortogram was done. Patient was given 4000 units of heparin, SL 4 guide was advanced to the left coronary system with an FFR wire was advanced in the ramus intermedius and measurement was 0.97 then it was retracted and advanced to the diagonal artery into measurement it was 1.0 and it was retracted and advanced in the distal LAD and FFR was 0.91. At the end of the procedure the sheath was removed. Closure device was used FINDINGS: Hemodynamics LV 142/37, end-diastolic pressure of 37 Aorta 150/91 mean of 116 ANATOMY: Left Main has no obstructive disease Left Anterior Descending has moderate lesion 40-50 percent stenosis at the midportion FFR was 0.91, first diagonal artery has moderate lesion FFR was 1.0 Ramus intermedius has mild to moderate lesion, FFR was 0.97 Left Circumflex is moderate in size with mild disease nonobstructive disease Right Coronory Artery is moderate in size with no obstructive disease LV Gram was done showing dilated left ventricle with diffuse left ventricular hypokinesia estimated ejection fraction 35-40 percent Aorta evaluation done with every abdominal aortogram which showed normal abdominal aorta, no dissection or aneurysm, normal renal arteries, normal superior and inferior mesenteric arteries. CONCLUSION: 1. Moderate mid LAD stenosis, FFR is 0.91 2. Otherwise mild to moderate disease in the diagonal and ramus intermedius and circumflex artery, nonobstructive disease. 3. Dilated left ventricle with diffuse left ventricular hypokinesia with ejection fraction 35-40 percent, elevated left ventricular end-diastolic pressure 4. Normal abdominal aorta and renal arteries DISCUSSION AND RECOMMENDATION: Maximize medical therapy, patient has dilated cardiomyopathy, nonischemic in nature secondary to hypertensive heart disease. Anesthesia Type: Conscious Sedation Estimated blood loss (mL): 25 ml Contrast Amount: 135 ml Total Radiation Dose: 1166 mGy Post-Procedure Diagnosis Post-operative diagnosis: Congestive heart failure, acute left ventricular systolic dysfunction, nonischemic myopathy Coronary artery disease Hypertensive emergency Diabetes mellitus SALVADOR HAWKINS MD Dec 14, 2019 13:00
[2019-12-14] MEDS: FUROSEMIDE 40 MG/4 ML INJ (LASIX) IVP SCH (17:09)
[2019-12-14] MEDS: ENOXAPARIN 40 MG/0.4 ML (LOVENOX) SYR SC SCH (17:09)
[2019-12-15 03:52] LABS: HEMOGLOBIN 14.6 G/DL (13.3-17.7); MEAN PLATELET VOLUME 10.9 FL (7.4-10.4); RED CELL DISTRIBUTION WIDTH 14.3 % (10.0-14.5); WHITE BLOOD COUNT 9.1 10^3/uL (4.3-11.0)
[2019-12-15 04:00] VITALS: BP 141/94
[2019-12-15 04:14] LABS: BUN/CREATININE RATIO 16; CALCIUM 8.4 MG/DL (8.5-10.1); CARBON DIOXIDE 21 MMOL/L (21-32); CHLORIDE 107 MMOL/L (98-107); CREATININE SERUM 1.18 MG/DL (0.60-1.30); GFR ESTIMATED > 60; GLUCOSE 285 MG/DL (70-105); MAGNESIUM 1.7 MG/DL (1.6-2.4); PHOSPHORUS 3.4 MG/DL (2.3-4.7); SODIUM 139 MMOL/L (135-145)
--- NOTE | 2019-12-15 05:28 | Pulmonary Progress Note ---
Subjective Time Seen by a Provider: 05:26 Sepsis Event Evaluation Height, Weight, BMI Height: '" Weight: lbs. oz. kg; 23.00 BMI Method: Exam Exam Vital Signs Date Time Temp Pulse Resp B/P (MAP) Pulse Ox O2 Delivery O2 Flow Rate FiO2 12/15/19 04:00 37.0 81 16 141/94 (110) 96 Nasal Cannula 3.00 12/15/19 01:00 78 12/14/19 23:40 36.7 79 18 129/83 (98) 97 Nasal Cannula 3.00 12/14/19 20:00 36.4 77 20 164/95 (118) 96 Nasal Cannula 3.00 12/14/19 20:00 Nasal Cannula 2.00 12/14/19 20:00 99 Nasal Cannula 3.00 12/14/19 19:00 83 12/14/19 18:00 80 178/121 (140) Nasal Cannula 3.00 12/14/19 17:00 79 162/103 (122) 97 Nasal Cannula 3.00 12/14/19 16:00 76 148/98 (115) 89 Nasal Cannula 3.00 12/14/19 16:00 36.3 12/14/19 15:32 99 Room Air 12/14/19 15:30 72 146/99 (115) 94 Nasal Cannula 3.00 12/14/19 15:00 76 156/111 (126) 97 Nasal Cannula 3.00 12/14/19 14:30 74 147/104 (118) 99 Nasal Cannula 3.00 12/14/19 14:15 70 142/105 (117) 93 Nasal Cannula 3.00 12/14/19 14:00 77 146/97 (113) 91 Nasal Cannula 3.00 12/14/19 13:45 75 151/100 (117) 96 Nasal Cannula 3.00 12/14/19 13:30 74 149/99 (116) 95 Nasal Cannula 3.00 12/14/19 13:00 72 12/14/19 11:42 99 Room Air 12/14/19 09:00 76 179/112 (134) 97 Nasal Cannula 2.00 12/14/19 08:00 36.2 12/14/19 08:00 78 156/115 (129) 95 Nasal Cannula 2.00 12/14/19 08:00 98 Room Air 2/15/20 07:00 82 12/14/19 07:00 81 155/88 (110) 94 Nasal Cannula 2.00 I & O 12/15/19 07:00 Intake Total 1460 ml Output Total 1325 ml Balance 135 ml Height & Weight Height: '" Weight: lbs. oz. 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
[2019-12-15] MEDS ORDERED: MAGNESIUM 1 GM/100 ML IVPB 200 ML IV ONE (06:30)
[2019-12-15] MEDS: FUROSEMIDE 40 MG/4 ML INJ (LASIX) IVP SCH (07:07)
[2019-12-15] MEDS: MAGNESIUM 1 GM/100 ML IVPB 100 ML IV SCH ×2 (07:07→08:08)
[2019-12-15] MEDS: inSUlin ASPART (NovoLOG) 1 UNIT/0.01 ML (CHARGE PER UNIT) SC SCH (07:07)
[2019-12-15 08:00] VITALS: BP 174/94
[2019-12-15] MEDS: meTOprolol TARTRATE 25 MG (LOPRESSOR) TABLET PO SCH (08:08)
[2019-12-15] MEDS: ASPIRIN E.C. 81 MG (ECOTRIN) TAB PO SCH (08:08)
[2019-12-15] MEDS: cloNIDine 0.1 MG (CATAPRES) TAB PO SCH (08:08)
[2019-12-15] MEDS: lisINopril 20 MG (PRINIVIL) TABLET PO SCH (08:08)
--- NOTE | 2019-12-15 08:27 | Cardiology Progress Note ---
Subjective Date Seen by Provider: Dec 15, 2019 Time Seen by Provider: 08:25 Subjective/Events-last exam Patient is laying down in bed, feeling better, denied any chest pain. Groin is healing well Review of Systems General: No Chills, No Night Sweats, No Fatigue, No Malaise, No Appetite, No Other HEENT: No Head Aches, No Visual Changes, No Eye Pain, No Ear Pain, No Dysphasia, No Sinus Congestion, No Post Nasal Drip, No Sore Throat, No Other Pulmonary: No Dyspnea, No Cough, No Pleuritic Chest Pain, No Other Cardiovascular: No: Chest Pain, Palpitations, Orthopnea, Paroxysmal Noc. Dyspnea, Edema, Lt Headedness, Other Objective-Cardiology Exam Last Set of Vital Signs Vital Signs 12/15/19 12/15/19 04:00 08:00 Temp 36.9 Pulse 81 Resp 18 B/P (MAP) 174/94 (120) Pulse Ox 95 O2 Delivery Room Air O2 Flow Rate 3.00 Capillary Refill : Less Than 3 Seconds I&O Intake and Output 12/15/19 00:00 Intake Total 2060 ml Output Total 1825 ml Balance 235 ml Intake Oral 1410 ml IV Total 650 ml Output Urine Total 1825 ml # Voids 1 # Bowel Movements 1 General: Alert, Oriented X3, Cooperative HEENT: Atraumatic, PERRLA Neck: Supple, No JVD, No Thyromegaly Lungs: Clear to Auscultation, Normal Air Movement Heart: Regular Rate, Normal S1, Normal S2, No Murmurs, Other (S3 present) Abdomen: Normal Bowel Sounds, Soft, No Tenderness, No Hepatosplenomegaly, No Masses Extremities: No Clubbing, No Cyanosis, No Edema, Normal Pulses, No Tenderness/Swelling Skin: No Rashes, No Breakdown, No Significant Lesion Neuro: Normal Gait, Normal Speech, Strength at 5/5 X4 Ext, Normal Tone, Sensation Intact Psych/Mental Status: Mental Status NL, Mood NL Results Lab Laboratory Tests 12/15/19 03:39 A/P-Cardiology Admission Diagnosis Chest pain Hypertensive emergency Diabetes mellitus COPD Assessment/Plan Chest pain resembling angina, mild elevation troponin probably due to hypertension, cardiac catheterization done showing moderate coronary artery disease nonobstructive disease Coronary artery disease, cardiac catheterization was done on December 14, 2019, medical therapy is recommended CONCLUSION: 1. Moderate mid LAD stenosis, FFR is 0.91 2. Otherwise mild to moderate disease in the diagonal and ramus intermedius and circumflex artery, nonobstructive disease. 3. Dilated left ventricle with diffuse left ventricular hypokinesia with ejection fraction 35-40 percent, elevated left ventricular end-diastolic pressure 4. Normal abdominal aorta and renal arteries Malignant hypertension, better control at this time, I will change metoprolol to Toprol-XL 50 mg daily, continue on lisinopril, hydrochlorothiazide and clonidine and add Norvasc 5 mg daily. Hyperlipidemia/hypertriglyceridemia, started on fenofibrate, monitor lipids at his outpatient Diabetes mellitus, poor control, noncompliant, receiving IV fluid, monitor renal function Chronic renal insufficiency, started on IV fluids, monitor renal function COPD/obstructive sleep apnea, was on C Pap in the past, has stopped using it. Probably need reevaluation for C Pap Obesity, has lost about 20 pounds over the past 2 months, encouraged to continue with weight loss program Okay for discharge from cardiology standpoint, follow-up with my office in one week Clinical Quality Measures AMI/AHF: ASA po Prior to arrival: No DVT/VTE Risk/Contraindication: Risk Factor Score Per Nursin RFS Level Per Nursing on Admit: 1=Low/No VTE PPX SALVADOR HAWKINS MD Dec 15, 2019 08:27
[2019-12-15] MEDS ORDERED: CLON0.1T PO (08:29)
[2019-12-15] MEDS ORDERED: AMLO5TAB9 PO (08:29)
[2019-12-15] MEDS ORDERED: LISI-552 PO (08:29)
[2019-12-15] MEDS ORDERED: FENO134C PO (08:29)
[2019-12-15] MEDS ORDERED: METO50TA7 PO (08:29)
[2019-12-15] MEDS ORDERED: ASPI-983 PO (08:29)
--- NOTE | 2019-12-15 08:30 | Discharge Inst-Post CATH ---
Discharge Inst-CATH/EP Post Cardiac Cath/EP D/C Inst Follow Up/Plan Appointment with Dr. Velazquez's office in one to 2 weeks <b>CARDIAC CATH/EP PROCEDURE DISCHARGE INSTRUCTIONS</b> ACTIVITY * Go Home directly and rest. * Limit activity of the leg (or wrist if it was used) for 7 days including aerobics, swimming, jogging, bicycling, etc. * Restrict stair-climbing for 7 days if possible, if not, climb up with your non-cath leg, then bring together on the same step. * Avoid lifting, pushing, pulling or excessive movement of the affected extremity for 7 days. * Customary sexual activity may be resumed after 2 days-use caution not to use a position that strains or causes pain to the affected extremity. * No driving for 24 hours. * NO SMOKING. * Avoid straining for bowel movements for 7 days. * Gentle walking on level ground is allowed. * Returning to work will depend on the type of procedure and the results. Your doctor will discuss this with you. CALL YOUR DOCTOR FOR ANY OF THE FOLLOWING: *If bleeding from the puncture site occurs- Apply gentle pressure to site with clean cloth and call your doctor or EMS. * If a knot or lump forms under the skin, increases in size, or causes pain. * If bruising appears to be worsening or moving further down your leg instead of disappearing. * Temperature above 101 F. CARE OF YOUR GROIN INCISION; * Bruising or purple discoloration of the skin near the puncture site is common. * You may shower only, no bathtub bathing for 5 days. Be careful to avoid slipping as your leg may feel stiff. * If a closure device was used on your femoral artery, please see the attached guide regarding care of the device and your leg. * Leave dressing on FOR 24 hours. CARE OF YOUR WRIST INCISION; * Bruising or purple discoloration of the skin near the puncture site is common. * You may shower. * DO NOT submerge wrist. * Leave dressing on FOR 24 hours. SALVADOR VELAZQUEZ MD Dec 15, 2019 08:30
[2019-12-15] MEDS ORDERED: KCL 20 MEQ TAB (K-DUR) PO SCH (09:00)
[2019-12-15] MEDS ORDERED: ASPIRIN E.C. 81 MG (ECOTRIN) TAB PO SCH (09:00)
[2019-12-15] MEDS ORDERED: meTOproloL SUCCINATE 50 MG (TOPROL XL) TAB PO SCH (09:00)
[2019-12-15] MEDS ORDERED: amLODIPine 5 MG (NORVASC) TAB PO SCH (09:00)
[2019-12-15] MEDS ORDERED: HYDROCHLOROTHIAZIDE 25 MG (HCTZ) TAB PO SCH (09:00)
[2019-12-15] MEDS ORDERED: INSU100V5 SQ (09:27)
[2019-12-15] MEDS ORDERED: INSU100I14 SQ (09:27)
[2019-12-15] MEDS ORDERED: METF-397 PO (09:27)
--- NOTE | 2019-12-15 09:30 | Diagnostic Imaging Report ---
EXAM: CHEST 1 VIEW, AP/PA ONLY INDICATION: Hypertension. ICU care management. COMPARISON: 12/14/2019. FINDINGS: Cardiomegaly. Normal central pulmonary vascularity. No focal pulmonary opacity, pleural effusion or pneumothorax. No acute osseous findings. IMPRESSION: Stable cardiomegaly. No acute cardiopulmonary findings. Dictated by: Dictated on workstation # [id number]
--- NOTE | 2019-12-15 09:34 | Discharge Summary ---
Diagnosis/Chief Complaint Date of Admission Dec 13, 2019 at 14:50 Date of Discharge December 15, 2019 Discharge Date: Dec 15, 2019 Discharge Time: 10:00 Admission Diagnosis chest pain Hypertensive urgency DM out of control secondary to non compliance Mandeep - noncompliant in need of CPAP mask plan to admit- r/o and CV consult Primary Care [facility] Discharge Diagnosis Accelerated hypertension Chest pain secondary to hypertension Type II diabetes out of control secondary to noncompliance Obstructive sleep apnea Moderate obesity Discharge Summary Procedures/Consulations Heart catheter-Dr. Eid Discharge Physical Exam Allergies: Coded Allergies: codeine (Verified Allergy, Unknown, 12/13/19) N/V/D fish derived (Unverified Allergy, Unknown, 12/13/19) Vitals & I&Os Vital Signs Date Time Temp Pulse Resp B/P (MAP) Pulse Ox O2 Delivery O2 Flow Rate FiO2 12/15/19 09:00 97 Room Air 12/15/19 08:00 36.9 81 18 174/94 (120) 12/15/19 04:00 3.00 General Appearance: No Apparent Distress, WD/WN HEENT: Normal ENT Inspection Respiratory: Lungs Clear, Normal Breath Sounds, No Accessory Muscle Use, No Respiratory Distress Cardiovascular: Regular Rate, Rhythm, No Edema, No Gallop, No JVD, No Murmur, Normal Peripheral Pulses Gastrointestinal: Normal Bowel Sounds, No Organomegaly, No Pulsatile Mass, Non Tender, Soft Extremity: Normal Capillary Refill, Normal Inspection, Normal Range of Motion, Non Tender, No Calf Tenderness Skin: Normal Color, Warm/Dry Neurologic/Psychiatric: Alert, Oriented x3, No Motor/Sensory Deficits, Normal 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 He presented to the emergency room with complaints of chest pain and was found to be severely hypertensive. The patient was admitted to the ICU and started on IV medications for his hypertension. In addition he was found to be hyp erglycemic secondary to his noncompliance. The patient had stopped all of his medications about a month ago. He was taken to catheter lab by Dr. Eid because of his multiple risk factors for having heart disease but was found to have nonobstructive disease. Blood pressure and diabetes were brought under control. He is being discharged with instructions to follow-up closely with [facility] and to be compliant with his medications. In addition he was seen by Dr. Villagran who also recommended compliance with his CPAP mask. The patient was instructed to not work for at least one week because of the groin site with a heart catheter was done. Labs (last 24 hrs) Laboratory Tests 12/14/19 10:41: Glucometer 270H 12/14/19 15:47: Glucometer 329H 12/14/19 20:28: Glucometer 331H 12/15/19 03:39: White Blood Count 9.1, Red Blood Count 5.22, Hemoglobin 14.6, Hematocrit 43, Mean Corpuscular Volume 82, Mean Corpuscular Hemoglobin 28, Mean Corpuscular Hemoglobin Concent 34, Red Cell Distribution Width 14.3, Platelet Count 169, Mean Platelet Volume 10.9H, Sodium Level 139, Potassium Level 4.0, Chloride Level 107, Carbon Dioxide Level 21, Anion Gap 11, Blood Urea Nitrogen 19H, Creatinine 1.18, Estimat Glomerular Filtration Rate > 60, BUN/Creatinine Ratio 16, Glucose Level 285H, Calcium Level 8.4L, Phosphorus Level 3.4, Magnesium Level 1.7 Microbiology 12/13/19 MRSA Screen - Final, Complete MRSA not isolated Patient resulted labs reviewed. Pending Labs Laboratory Tests 12/15/19 03:39: White Blood Count 9.1, Red Blood Count 5.22, Hemoglobin 14.6, Hematocrit 43, Mean Corpuscular Volume 82, Mean Corpuscular Hemoglobin 28, Mean Corpuscular Hemoglobin Concent 34, Red Cell Distribution Width 14.3, Platelet Count 169, Mean Platelet Volume 10.9, Sodium Level 139, Potassium Level 4.0, Chloride Level 107, Carbon Dioxide Level 21, Anion Gap 11, Blood Urea Nitrogen 19, Creatinine 1.18, Estimat Glomerular Filtration Rate > 60, BUN/Creatinine Ratio 16, Glucose Level 285, Calcium Level 8.4, Phosphorus Level 3.4, Magnesium Level 1.7 Imaging: Reviewed Imaging Report Discussion & Recommendations Discharge Planning: <30 minutes discharge planning Discharge Home Medications: Active Scripts Active Metformin HCl 500 Mg Tablet 500 Mg PO BID 30 Days Novolog Flexpen (Insulin Aspart) 300 Units/3 Ml Solution 6 Units SQ AC 30 Days Levemir (Insulin Determir) 1,000 Units/10 Ml Soln 25 Units SQ HS 30 Days Condition at discharge Stable Instructions to patient/family Please see electronic discharge instructions given to patient. Clinical Quality Measures AMI/AHF: ASA po Prior to arrival: No DVT/VTE Risk/Contraindication: Risk Factor Score Per Nursin RFS Level Per Nursing on Admit: 1=Low/No VTE PPX VIRGIE RODRIGUES MD Dec 15, 2019 09:34
[2019-12-15 10:05] VITALS: BP 139/92
[2019-12-15 11:00] VITALS: BP 139/92
[2019-12-15] MEDS ORDERED: FENOFIBRATE 134 MG (LOFIBRA) CAPSULE PO SCH (21:00)
--- NOTE | 2019-12-17 10:15 | Physician Query Clarification ---
PQ-Further Specificity Admission/Discharge Admission Date: Dec 13, 2019 at 14:50 Discharge Date: Dec 15, 2019 at 10:55 The medical record reflects the following clinical scenario: History/Risk Factors: Hypertensive emergency and urgency, acute systolic CHF, CKD, Diabetes uncontrolled, Dilated cardiomyopathy Clinical Findings: Troponin 0.033 > 0.038 Treatment: Nitroglycerin, IV Metoprolol, IV Hyralazine, Clonidine Question: Can you further specify the elevated troponin per the clinical indicators above? Dr. Velazquez states mild elevated troponin probably secondary to HTN. Dr. Parada states NSTEMI Please document a response in the Progress Notes or Discharge Summary. 1. Elevated troponin due to HTN causing DE type 2 2. Elevated troponin due to NSTEMI 3. Other, with explanation of the clinical findings. 4. Clinically undetermined, no explanation for the clinical findings. PHYSICIAN RESPONSE Can you specify per above: 1 Please remember a lack of response to the above will prompt a phone page by CDI/Coding staff. In responding to this query, please exercise your independent professional judgment. The purpose of this communication is to more accurately reflect the complexity of your patients condition. The fact that a question is asked does not imply that any particular answer is desired or expected. Thank you for your timely response to this clarification. Requestors name: Sharri THIS PHYSICIAN QUERY FORM IS A PERMANENT PART OF THE MEDICAL RECORD SHARRI DUNBAR Dec 17, 2019 10:15 SALVADOR VELAZQUEZ MD Dec 17, 2019 16:23
== END 2019-12-15 10:55 | disposition home or self-care (01) | DRG 280 ==
LOC: EDUNIT# 13:26 → ER 13:27 → ICU 14:50 → EDPENDDISTM 12-15 11:00
PROVIDERS: ADMIT Internal Medicine; ATTEND Internal Medicine
PROC: 4A023N7 Measurement of Cardiac Sampling and Pressure, Left Heart, Percutaneous Approach (ICD-10-PCS; principal; 2019-12-14)
PROC: 4A033BC Measurement of Arterial Pressure, Coronary, Percutaneous Approach (ICD-10-PCS; 2019-12-14)
PROC: B2111ZZ Fluoroscopy of Multiple Coronary Arteries using Low Osmolar Contrast (ICD-10-PCS; 2019-12-14)
PROC: B2151ZZ Fluoroscopy of Left Heart using Low Osmolar Contrast (ICD-10-PCS; 2019-12-14)
PROC: B4101ZZ Fluoroscopy of Abdominal Aorta using Low Osmolar Contrast (ICD-10-PCS; 2019-12-14)
DX: I16.1 Hypertensive emergency (principal); I16.0 Hypertensive urgency; I21.A1 Myocardial infarction type 2; I13.0 Hypertensive heart and chronic kidney disease with heart failure and stage 1 through stage 4 chronic kidney disease, or unspecified chronic kidney disease; I50.21 Acute systolic (congestive) heart failure; N18.9 Chronic kidney disease, unspecified; I42.0 Dilated cardiomyopathy; I25.119 Atherosclerotic heart disease of native coronary artery with unspecified angina pectoris; G47.33 Obstructive sleep apnea (adult) (pediatric); G47.34 Idiopathic sleep related nonobstructive alveolar hypoventilation; E11.65 Type 2 diabetes mellitus with hyperglycemia; Z79.4 Long term (current) use of insulin; J44.9 Chronic obstructive pulmonary disease, unspecified; K21.9 Gastro-esophageal reflux disease without esophagitis; E66.9 Obesity, unspecified; E78.1 Pure hyperglyceridemia; Z68.37 Body mass index [BMI] 37.0-37.9, adult; Z91.120 Patient's intentional underdosing of medication regimen due to financial hardship
CPT/HCPCS: 36415; 71045; 75625; 80048; 80053; 80061; 80306; 82962; 83735; 83874; 83880; 84100; 84484; 85025; 85027; 85610; 85730; 87081; 93005; 93041; 93458; 96372; 96374

== ENCOUNTER → 2019-12-31 | Outpatient (CLI) | payer BC ==
[~2019-12-31] MED LIST changes: +AMLO5TAB9 PO; +ASPI-983 PO; -CATHETER FLUSH 10 ML SYR IV PRN; +CLON0.1T PO; +FENO134C PO; +INSU100I14 SQ; +INSU100V5 SQ; +LISI-552 PO; +METF-397 PO; +METO50TA7 PO; -REGADENOSON 0.4 MG/5 ML SYR (LEXISCAN) IV ONE
[2019-12-31 11:36] LABS: ABG BASE EXCESS 2.7 MMOL/L (-2.5-2.5); ABG OXYGEN SATURATION 96 % (94-100); ABG PCO2 44 MMHG (35-45); ABG PO2 72 MMHG (79-93); ABG TCO2 28.6 MMOL/L (21.0-31.0)
[2019-12-31 11:41] LABS: ALLENS TEST YES-POS; INSPIRED O2 ROOM AIR; VENTILATOR NO
[2019-12-31 11:44] LABS: PATIENT TEMP 36.6
== END ==
LOC: RT 10:44
PROVIDERS: ATTEND Nurse Practitioner Family
DX: I45.10 Unspecified right bundle-branch block (principal); I42.0 Dilated cardiomyopathy; G47.33 Obstructive sleep apnea (adult) (pediatric)
CPT/HCPCS: 36600; 82805

== ENCOUNTER → 2020-01-06 | Outpatient (CLI) | payer BC ==
[~2020-01-06] MED LIST changes: +RT-ALBUTEROL SULF 2.5 MG/3 ML PRE-MIX VIAL INH ONE
== END ==
LOC: RT 09:25
PROVIDERS: ATTEND Nurse Practitioner Family
DX: G47.33 Obstructive sleep apnea (adult) (pediatric) (principal); I42.0 Dilated cardiomyopathy; I45.10 Unspecified right bundle-branch block
CPT/HCPCS: 94060; 94726; 94729

== ENCOUNTER 2020-12-29 12:05 | Outpatient (CLI) | payer BC ==
[~2020-12-29 12:05] MED LIST changes: +AMLO-250 PO; -AMLO5TAB9 PO; +ASPI-1238 PO; -ASPI-983 PO; +CLN.1T PO; -CLON0.1T PO; -LISI-552 PO; +LISI20TA26 PO; -RT-ALBUTEROL SULF 2.5 MG/3 ML PRE-MIX VIAL INH ONE
== END 2020-12-29 12:56 | disposition home or self-care (01) ==
LOC: SLEEP 12:05
PROVIDERS: ATTEND Otolaryngology Otolaryngology/Facial Plastic Surgery
DX: G47.33 Obstructive sleep apnea (adult) (pediatric) (principal)
CPT/HCPCS: G0399

== ENCOUNTER 2021-07-16 18:48 | Inpatient (IN) | payer BC ==
[~2021-07-16] VITALS: Ht 182.8 cm; Wt 116.7 kg
[2021-07-16] MEDS ORDERED: diphenhydrAMINE 25 MG TAB (BENADRYL) PO PRN (20:30)
[2021-07-16] MEDS ORDERED: ONDANSETRON 4 MG/2 ML (SDV) Z0FRAN IV PRN (20:30)
[2021-07-16] MEDS ORDERED: ACETAMINOPHEN 325 MG TABLET PO PRN (20:30)
[2021-07-16] MEDS ORDERED: MELATONIN 3 MG TABLET PO PRN (20:30)
[2021-07-16] MEDS ORDERED: ANTACID SUSP 30 ML UDC (MYLANTA) PO PRN (20:30)
[2021-07-16] MEDS ORDERED: polyethylene glycoL POWDER 17 GM (MIRALAX) PACK PO PRN (20:30)
[2021-07-16] MEDS ORDERED: hydrALAZINE (APESOLINE) 20 MG/ML VIAL IV PRN (20:45)
[2021-07-16] MEDS ORDERED: HEParin DRIP 25000 UNIT/500ML 500 ML IV SCH (21:00)
[2021-07-16 21:29] LABS: BASOPHILS % (AUTO) 0 % (0-10); EOSINOPHILS # (AUTO) 0.1 10^3/uL (0.0-0.3); EOSINOPHILS % (AUTO) 1 % (0-10); HEMATOCRIT 49 % (40-54); HEMOGLOBIN 16.2 g/dL (13.3-17.7); LYMPHOCYTES # (AUTO) 1.9 10^3/uL (1.0-4.0); LYMPHOCYTES % (AUTO) 15 % (12-44); MEAN CORPUSCULAR HEMOGLOBIN 28 pg (25-34); MEAN CORPUSCULAR HGB CONC 33 g/dL (32-36); MEAN CORPUSCULAR VOLUME 85 fL (80-99); MEAN PLATELET VOLUME 10.9 fL (9.0-12.2); MONOCYTES # (AUTO) 1.1 10^3/uL (0.0-1.0); MONOCYTES % (AUTO) 9 % (0-12); NEUTROPHILS # (AUTO) 9.4 10^3/uL (1.8-7.8); NEUTROPHILS % (AUTO) 75 % (42-75); PLATELET COUNT 216 10^3/uL (130-400); WHITE BLOOD COUNT 12.6 10^3/uL (4.3-11.0)
[2021-07-16 21:42] LABS: PROTHROMBIN TIME PATIENT 13.9 SEC (12.2-14.7)
[2021-07-16 21:49] LABS: ALBUMIN 4.1 GM/DL (3.2-4.5); BILIRUBIN,TOTAL 0.9 MG/DL (0.1-1.0); CALCIUM 9.3 MG/DL (8.5-10.1); CREATININE SERUM 1.41 MG/DL (0.60-1.30); POTASSIUM 3.6 MMOL/L (3.6-5.0); TOTAL PROTEIN 6.9 GM/DL (6.4-8.2)
[2021-07-16] MEDS: inSUlin ASPART (NovoLOG) 1 UNIT/0.01 ML (CHARGE PER UNIT) SC SCH (21:57)
[2021-07-16] MEDS: HEParin 1000 UNIT/ML (10ML VIAL) FOR BOLUS IV SCH (22:10)
[2021-07-16 22:11] LABS: ATYPICAL LYMPHOCYTES 6 %; BAND NEUTROPHILS 2 %; LYMPHOCYTES % (MANUAL) 13 %; MONOCYTES % (MANUAL) 8 %; NEUTROPHILS % (MANUAL) 71 %
[2021-07-16 22:12] LABS: RBC MORPH NORMAL
[2021-07-16] MEDS ORDERED: NS IV 1000 ML 1,000 ML ONE (22:21)
[2021-07-16] MEDS: NS IV 1000 ML 1,000 ML IV SCH (22:23)
[2021-07-16] MEDS: ONDANSETRON 4 MG (ZOFRAN) ORAL DISSOLVE TAB PO PRN (22:46)
[2021-07-17 02:52] LABS: BASOPHILS % (AUTO) 0 % (0-10); EOSINOPHILS # (AUTO) 0.1 10^3/uL (0.0-0.3); EOSINOPHILS % (AUTO) 1 % (0-10); HEMATOCRIT 50 % (40-54); HEMOGLOBIN 16.6 g/dL (13.3-17.7); LYMPHOCYTES # (AUTO) 2.1 10^3/uL (1.0-4.0); LYMPHOCYTES % (AUTO) 15 % (12-44); MEAN CORPUSCULAR HEMOGLOBIN 28 pg (25-34); MEAN CORPUSCULAR HGB CONC 33 g/dL (32-36); MEAN CORPUSCULAR VOLUME 85 fL (80-99); MEAN PLATELET VOLUME 10.9 fL (9.0-12.2); MONOCYTES # (AUTO) 1.2 10^3/uL (0.0-1.0); MONOCYTES % (AUTO) 9 % (0-12); NEUTROPHILS # (AUTO) 10.5 10^3/uL (1.8-7.8); NEUTROPHILS % (AUTO) 75 % (42-75); PLATELET COUNT 197 10^3/uL (130-400)
[2021-07-17 02:59] LABS: POTASSIUM 3.8 MMOL/L (3.6-5.0)
[2021-07-17 03:04] LABS: CREATININE SERUM 1.14 MG/DL (0.60-1.30)
[2021-07-17] MEDS: HEParin 1000 UNIT/ML (10ML VIAL) FOR BOLUS IV SCH ×2 (03:16→08:57)
[2021-07-17] MEDS: ONDANSETRON 4 MG (ZOFRAN) ORAL DISSOLVE TAB PO PRN ×2 (03:25→08:04)
[2021-07-17] MEDS: inSUlin ASPART (NovoLOG) 1 UNIT/0.01 ML (CHARGE PER UNIT) SC SCH ×4 (03:34→21:15)
[2021-07-17] MEDS: NITROGLYCERIN 0.4 MG SL TABS BTL 25'S SL PRN ×2 (07:57→08:06)
[2021-07-17] MEDS: NS IV 1000 ML 1,000 ML IV SCH ×3 (08:01→15:02)
[2021-07-17] MEDS: meTOprolol SUCCINATE 100 MG (TOPROL XL) TAB PO SCH (08:57)
[2021-07-17] MEDS: amLODIPine 10 MG (NORVASC) TAB PO SCH (08:57)
[2021-07-17] MEDS ORDERED: LOSARTAN 50 MG (COZAAR) TAB PO SCH (09:00)
[2021-07-17] MEDS ORDERED: LIDOCAINE 1% INJ 20 ML 20 ML VIAL ONE (09:32)
[2021-07-17] MEDS ORDERED: HEParin (CATH LAB) 2,000 ML IV ONE (09:32)
[2021-07-17] MEDS ORDERED: fentaNYL INJ 100 MCG/2 ML AMP ONE (09:33)
[2021-07-17] MEDS ORDERED: MIDAZOLAM 5 MG/5 ML (VERSED) VIAL ONE (09:33)
[2021-07-17] MEDS ORDERED: diphenhydrAMINE 50 MG/ML INJ (BENADRYL) ONE (09:49)
--- NOTE | 2021-07-17 10:03 | Conscious Sedation/ASA ---
Conscious Sedation Pre-Proced Time 10:03 ASA Score 3 For ASA 3 and 4: Consider anesthesia and medical clearance. Also, for patients with a history of failed moderate sedation consider anesthesia. Airway Lungs Heart ASA score ASA 1: a normal healthy patient ASA 2: a patient with a mild systemic disease (mid diabetes, controlled hypertension, obesity x ASA 3: a patient with a severe systemic disease that limits activity (angina, COPD, prior Myocardial infarction) ASA 4: a patient with an incapacitating disease that is a constant threat to life (CHF, renal failure) ASA 5: a moribund patient not expected to survive 24 hrs. (ruptured aneurysm) ASA 6: a declared brain- patient whose organs are being harvested. For emergent operations, add the letter E after the classification Mallampati Classification Grade 3 Sedation Plan Analgesia, Amnesia, Plan communicated to team members, Discussed options with patient/fam, Discussed risks with patient/fam The patient is an appropriate candidate to undergo the planned procedure, sedation, and anesthesia. The patient immediately re-assessed prior to indication. SALVADOR HAWKINS MD Jul 17, 2021 10:03
--- NOTE | 2021-07-17 10:03 | Consultation-Cardiology ---
HPI-Cardiology Cardiology Consultation Date of Consultation 07/17/21 Date of Admission Time Seen by Provider: 10:01 Indication: Chest pain HPI 51 years old gentleman with history of coronary artery disease, hypertension, COPD. Has been feeling tired, having diaphoresis for the past 2 weeks. Had an episode of severe chest pain after multiple episodes of mild discomfort in his c hest for the past 2 weeks. With his acute chest pain patient went to [facility] emergency room and he was severely hypertensive. Noted to have elevation in troponin. By the time he arrived to the emergency room his chest pain has subsided, continue to have waxing and waning mild retrosternal chest discomfort. No syncope. No near syncopal episodes. Home Medications & Allergies Allergies: Coded Allergies: codeine (Verified Allergy, Unknown, 12/13/19) N/V/D fish derived (Unverified Allergy, Unknown, 12/13/19) Home Medication List Reviewed: Yes YRK-Dbjrzy-Aygqrn Hx Patient Social History Marital Status: Employed/Student: employed Smoking Status: Never a Smoker Have you traveled recently?: No Alcohol Use?: No Past Medical History Discussed below Family Medical History Family Medical Hx Noncontributory Review of Systems-General Review of Systems Constitutional: see HPI, malaise EENTM: see HPI, no symptoms reported Respiratory: see HPI; No cough; dyspnea on exertion; No hemoptysis, No orthopnea, No phlegm, No short of breath, No stridor, No wheezing, No other Cardiovascular: see HPI, chest pain; No edema, No Hx of Intervention, No palpitations, No syncope, No vascular heart diseas, No other Gastrointestinal: no symptoms reported, see HPI Genitourinary: no symptoms reported, see HPI Musculoskeletal: see HPI, joint pain Skin: no symptoms reported, see HPI Psychiatric/Neurological: No Symptoms Reported, See HPI Reviewed Test Results Reviewed Test Results Lab Laboratory Tests Test 07/16/21 21:15 07/16/21 21:25 07/17/21 02:43 07/17/21 08:08 Range/Units White Blood Count 12.6 H 14.0 H 4.3-11.0 10^3/uL Red Blood Count 5.73 H 5.90 H 4.30-5.52 10^6/uL Hemoglobin 16.2 16.6 13.3-17.7 g/dL Hematocrit 49 50 40-54 % Mean Corpuscular Volume 85 85 80-99 fL Mean Corpuscular Hemoglobin 28 28 25-34 pg Mean Corpuscular Hemoglobin Concent 33 33 32-36 g/dL Red Cell Distribution Width 12.9 12.8 10.0-14.5 % Platelet Count 216 197 130-400 10^3/uL Mean Platelet Volume 10.9 10.9 9.0-12.2 fL Immature Granulocyte % (Auto) 0 1 % Neutrophils (%) (Auto) 75 75 42-75 % Lymphocytes (%) (Auto) 15 15 12-44 % Monocytes (%) (Auto) 9 9 0-12 % Eosinophils (%) (Auto) 1 1 0-10 % Basophils (%) (Auto) 0 0 0-10 % Neutrophils # (Auto) 9.4 H 10.5 H 1.8-7.8 10^3/uL Lymphocytes # (Auto) 1.9 2.1 1.0-4.0 10^3/uL Monocytes # (Auto) 1.1 H 1.2 H 0.0-1.0 10^3/uL Eosinophils # (Auto) 0.1 0.1 0.0-0.3 10^3/uL Basophils # (Auto) 0.0 0.0 0.0-0.1 10^3/uL Immature Granulocyte # (Auto) 0.1 0.1 0.0-0.1 10^3/uL Neutrophils % (Manual) 71 % Lymphocytes % (Manual) 13 % Monocytes % (Manual) 8 % Band Neutrophils 2 % Atypical Lymphocytes 6 % Platelet Estimate Blood Morphology Comment NORMAL Prothrombin Time 13.9 12.2-14.7 SEC INR Comment 1.0 0.8-1.4 Activated Partial Thromboplast Time 30 48 H 46 H 24-35 SEC Sodium Level 143 141 135-145 MMOL/L Potassium Level 3.6 3.8 3.6-5.0 MMOL/L Chloride Level 107 105 98-107 MMOL/L Carbon Dioxide Level 24 19 L 21-32 MMOL/L Anion Gap 12 17 H 5-14 MMOL/L Blood Urea Nitrogen 21 H 18 7-18 MG/DL Creatinine 1.41 H 1.14 0.60-1.30 MG/DL Estimat Glomerular Filtration Rate 53 68 BUN/Creatinine Ratio 15 16 Glucose Level 156 H 167 H 70-105 MG/DL Calcium Level 9.3 9.0 8.5-10.1 MG/DL Corrected Calcium 9.2 8.5-10.1 MG/DL Total Bilirubin 0.9 0.1-1.0 MG/DL Aspartate Amino Transf (AST/SGOT) 42 H 5-34 U/L Alanine Aminotransferase (ALT/SGPT) 20 0-55 U/L Alkaline Phosphatase 64 40-136 U/L Troponin I 10.013 *H <0.028 NG/ML Total Protein 6.9 6.4-8.2 GM/DL Albumin 4.1 3.2-4.5 GM/DL Procalcitonin 0.09 <0.10 NG/ML Influenza Type A Antigen NEGATIVE NEGATIVE Influenza Type B Antigen POSITIVE H NEGATIVE Respiratory Syncytial Virus Antigen NEGATIVE NEGATIVE Physical Exam Physical Exam Vital Signs Vital Signs - First Documented 07/16/21 07/16/21 07/17/21 07/17/21 19:45 21:23 00:00 08:00 Temp 37.2 Pulse 79 Resp 14 B/P (MAP) 185/97 Pulse Ox 95 O2 Delivery Room Air O2 Flow Rate 2.00 FiO2 98 Capillary Refill : Height, Weight, BMI Height: '" Weight: lbs. oz. kg; 35.76 BMI Method: General Appearance: No Apparent Distress, WD/WN Eyes: Bilateral Eye Normal Inspection, Bilateral Eye PERRL, Bilateral Eye EOMI HEENT: PERRL/EOMI, TMs Normal, Normal ENT Inspection, Pharynx Normal, Moist Mucous Membranes Neck: Full Range of Motion, Normal Inspection, Non Tender, Supple, Carotid Bruit Respiratory: Chest Non Tender, Normal Breath Sounds, No Accessory Muscle Use, No Respiratory Distress Cardiovascular: Regular Rate, Rhythm, No Edema, No Gallop, No JVD, No Murmur, Normal Peripheral Pulses Gastrointestinal: Normal Bowel Sounds, No Organomegaly, No Pulsatile Mass, Non Tender, Soft Back: Normal Inspection, No CVA Tenderness, No Vertebral Tenderness Extremity: Normal Capillary Refill, Normal Inspection, Normal Range of Motion, Non Tender, No Calf Tenderness, No Pedal Edema Neurologic/Psychiatric: Alert, Oriented x3, No Motor/Sensory Deficits, Normal Mood/Affect Skin: Normal Color, Warm/Dry Lymphatic: No Adenopathy A/P-Cardiology Admission Diagnosis Non-ST elevation myocardial infarction Coronary artery disease Influenza B Hypertensive emergency Assessment/Plan Non-ST elevation myocardial infarction, chest pain and elevated troponin level, no acute EKG changes, I am planning to proceed with emergency cardiac catheterization possible PTCA Coronary artery disease, underwent cardiac catheterization in November 2019 after having mild elevation in troponin which showed borderline stenosis in the mid LAD and diagonal artery with FFR 0.91. Planning to proceed cardiac catheterization today Hypertensive emergency, labile blood pressure. Patient has been taking multiple blood pressure medication, will restart home medication monitor Shortness of breath, diaphoresis, tested positive for influenza B, started on Tamiflu Diabetes mellitus, followed and managed by primary care physician COPD/obstructive sleep apnea, was on CPAP in the past. Chronic renal insufficiency, monitor renal function closely Obesity, BMI 35, we discussed weight loss SALVADOR HAWKINS MD Jul 17, 2021 10:02
[2021-07-17] MEDS ORDERED: NS IV 1000 ML 1,000 ML IV SCH (10:15)
[2021-07-17] MEDS ORDERED: NITRO DRIP 25000 MCG/D5W 250 ML IV ONE (10:19)
[2021-07-17] MEDS ORDERED: CLOPIDOGREL 300 MG (PLAVIX) TABLET PO ONE (10:28)
[2021-07-17] MEDS ORDERED: ASPIRIN 325 MG (5 GR) TABLET ONE (10:28)
[2021-07-17] MEDS ORDERED: LOSARTAN 50 MG (COZAAR) TAB PO ONE (10:30)
[2021-07-17] MEDS ORDERED: PATIENT MAY USE OWN MEDS, ALL PO SCH (10:30)
--- NOTE | 2021-07-17 10:35 | Cardiac Cath Report ---
Cardiac Cath Report Physician (s)/Mine Utility Operator (s) Physician SALVADOR HAWKISN MD Pre-Procedure Diagnosis Pre-Procedure Diagnosis: CAD Post-Procedure Note Procedure Start Date: Jul 17, 2021 Name of Procedure: Left heart catheterization Stenting to the LAD Findings/Procedure Note PROCEDURE NOTE: 51 years old gentleman with a history of coronary artery disease, labile hypertension, admitted with acute chest pain, had significant elevation in troponin, continued to have waxing and waning chest pain. After explaining the procedure to the patient, all pros and cons were explained, all questions were answered. The patient signed the consent and then he was placed on the cardiac catheterization laboratory. Groin was prepped SL fashion local anesthesia was used. Sheath placed in the right femoral artery. Lyle right and left catheter were used to access the coronary system. Pigtail was used to access the left ventricular cavity. Left ventriculogram was done Patient has borderline lesion in the mid LAD that was noticed in November 2019, it appeared to be slightly progressed, due to the fact that he had significant chest pain and elevated troponin I decided to proceed with intervention on the LAD. Patient received heparin in the floor, ACT was over 220. EBU guide was advanced to the left coronary system, BMW wire was advanced and parked distally primary stenting using Dorita 2.5 x 18 mm was deployed under 15 candis expanded to 2.77 mm with excellent results. At the end of the procedure the sheath was removed. Closure device was deployed FINDINGS: Hemodynamics LV 166/30, end-diastolic pressure of 30 Aorta 170/90 mean of 123 ANATOMY: Left Main is free of obstructive disease is moderate in size, Left Anterior Descending had moderate to severe stenosis at the mid LAD, primary stenting using Dorita 2.5 x 18 mm expanded to 2.75 mm was done with excellent results, the first diagonal artery has borderline stenosis. Left Circumflex is moderate in size with moderate stenosis in the proximal first obtuse marginal branch, nonobstructive disease Right Coronary Artery is dominant artery with mild disease nonobstructive disease LV Gram was done showing normal left ventricular size, ejection fraction 50% CONCLUSION: 1. Moderate severe stenosis in the mid LAD successful primary stenting using Dorita 2.5 x 18 mm expanded to 2.75 with excellent results. 2. Moderate stenosis in the first diagonal artery and first obtuse marginal branch nonobstructive disease 3. Normal left ventricular size, ejection fraction 50%, elevated left ventricular end-diastolic pressure DISCUSSION AND RECOMMENDATION: Patient was started on aspirin and Plavix, will continue maximizing medical therapy Anesthesia Type: Conscious Sedation Estimated blood loss (mL): 25 ml Contrast Amount: 145 ml Total Radiation Dose: 1050 mGy Post-Procedure Diagnosis Post-operative diagnosis: Non-ST elevation myocardial infarction Coronary artery disease Malignant hypertension Diabetes mellitus SALVADOR HAWKINS MD Jul 17, 2021 10:35
[2021-07-17] MEDS: OSELTAMIVIR 75 MG (TAMIFLU) CAPSULE PO SCH ×2 (11:08→21:16)
[2021-07-17] MEDS: ISOSORBIDE MONONITRATE 30 MG (IMDUR) TAB PO SCH (11:08)
--- NOTE | 2021-07-17 11:50 | History & Physical-Hospitalist ---
History of Present Illness HPI/Chief Complaint Nelson Das is a 51-year-old male with past medical history of hypertension, type 2 diabetes mellitus, hyperlipidemia, coronary artery disease, obesity, who presented to the [facility] with chest pain. He was transferred to [facility] after being found to have an elevated troponin. He had reportedly been feeling weak and having diaphoresis for a couple weeks. He had been having fevers yesterday. He has had a dry cough. He denies nausea and vomiting. He denies shortness of breath. 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 Source: patient, family Exam Limitations: no limitations Date Seen 07/17/21 Time Seen by a Provider: 11:25 Attending Physician Hannah Ruelas MD PCP No,Local Physician Referring Physician Date of Admission Jul 16, 2021 at 19:45 Home Medications & Allergies Home Medications Reviewed patient Home Medication Reconciliation performed by pharmacy medication reconciliations civil engineering technician and/or nursing. Patients Allergies have been reviewed. Allergies Allergies Coded Allergies codeine (Verified Allergy, Unknown, 12/13/19) N/V/D fish derived (Unverified Allergy, Unknown, 12/13/19) Past Ynaajjo-Bjwblf-Xrifyi Hx Patient Social History Marrital Status: Employed/Student: employed Tobacco Use?: No Smoking Status: Never a Smoker Smokeless Tobacco Frequency: Never a User Use of E-Cig and/or Vaping dev: No Use of E-Cig and/or Vaping Mark: Never a User Substance use?: No Alcohol Use?: No Pt feels they are or have been: No Current Status Advance Directives: No Communicates: Verbally Primary Language: Jamaican Preferred Spoken Language: Jamaican Is interpretation needed?: No Implanted or Applied Medical D: None Past Medical History Surgeries: Gallbladder Sleep Apnea Currently Using CPAP: Yes Coronary Artery Disease, Hypertension Gastroesophageal Reflux Diabetes, Insulin dep Blood Disorders: No Family Medical History No Pertinent Family Hx Review of Systems Constitutional: diaphoresis EENTM: no symptoms reported Respiratory: cough Cardiovascular: chest pain Gastrointestinal: no symptoms reported Genitourinary: no symptoms reported Musculoskeletal: no symptoms reported Skin: no symptoms reported Psychiatric/Neurological: No Symptoms Reported Physical Exam Physical Exam Vital Signs Vital Signs - First Documented 07/16/21 07/16/21 07/17/21 07/17/21 19:45 21:23 00:00 08:00 Temp 37.2 Pulse 79 Resp 14 B/P (MAP) 185/97 Pulse Ox 95 O2 Delivery Room Air O2 Flow Rate 2.00 FiO2 98 Capillary Refill : Less Than 3 Seconds Height, Weight, BMI Height: '" Weight: lbs. oz. kg; 35.76 BMI Method: General Appearance: No Apparent Distress, Obese HEENT: PERRL/EOMI, Pharynx Normal Neck: Normal Inspection, Supple Respiratory: Lungs Clear, Normal Breath Sounds, No Respiratory Distress Cardiovascular: Regular Rate, Rhythm, No Edema, No Murmur Gastrointestinal: Normal Bowel Sounds, Non Tender, Soft Extremity: Normal Inspection, Non Tender, No Pedal Edema Neurologic/Psychiatric: Alert, Oriented x3, No Motor/Sensory Deficits, Normal Mood/Affect Skin: Normal Color, Warm/Dry Results Results/Procedures Labs Laboratory Tests 07/16/21 21:15 07/17/21 02:43 Patient resulted labs reviewed. Assessment/Plan Admission Diagnosis NSTEMI Admission Status: Inpatient Order (span 2 midnights) Reason for Inpatient Admission: Coronary artery stenting Assessment and Plan NSTEMI CAD s/p coronary artery stent placement HLD EKG with right bundle branch block Troponin elevated at 6 Given aspirin 324 mg Loaded with Plavix 300 mg Started on heparin drip Repeat trended up to 10 Cardiology consulted, appreciate assistance Left heart catheterization performed and revealed mid LAD occlusion, coronary stent deployed Continue aspirin and Plavix Check lipid panel Started on Imdur HTN Continue Metoprolol, Losartan, Amlodipine Added HCTZ and Imdur Influenza B Flu B+ Started on Tamiflu T2DM Sliding scale insulin Obesity Clinically significant, no acute management needs Diagnosis/Problems Diagnosis/Problems (1) NSTEMI (non-ST elevation myocardial infarction) Status: Acute (2) CAD (coronary artery disease) Status: Acute Qualifiers: Coronary Disease-Associated Artery/Lesion type: [place] artery [place] vs. transplanted heart: [place] heart (3) S/P coronary artery stent placement Status: Acute (4) HTN (hypertension) Status: Acute Qualifiers: Hypertension type: primary hypertension Qualified Codes: I10 - Essential (primary) hypertension (5) HLD (hyperlipidemia) Status: Chronic (6) T2DM (type 2 diabetes mellitus) Status: Chronic Qualifiers: Diabetes mellitus nursing home insulin use: without nursing home use Diabetes mellitus complication status: without complication Qualified Codes: E11.9 - Type 2 diabetes mellitus without complications (7) Obesity Status: Chronic (8) Influenza B Status: Acute HANNAH RUELAS MD Jul 17, 2021 11:49
[2021-07-17 12:05] LABS: TRIGLYCERIDES 118 MG/DL (<150); VLDL CHOLESTEROL 24 MG/DL (5-40)
[2021-07-17 12:10] LABS: CHOLESTEROL 131 MG/DL (< 200)
[2021-07-17 12:11] LABS: HDL CHOLESTEROL 46 MG/DL (40-60)
[2021-07-17] MEDS ORDERED: FUROSEMIDE 40 MG/4 ML INJ (LASIX) IVP ONE (14:30)
[2021-07-18] MEDS: NS IV 1000 ML 1,000 ML IV SCH (00:03)
[2021-07-18 05:25] LABS: BASOPHILS % (AUTO) 0 % (0-10); EOSINOPHILS % (AUTO) 0 % (0-10); HEMATOCRIT 48 % (40-54); HEMOGLOBIN 15.4 g/dL (13.3-17.7); LYMPHOCYTES # (AUTO) 1.8 10^3/uL (1.0-4.0); LYMPHOCYTES % (AUTO) 12 % (12-44); MEAN CORPUSCULAR HEMOGLOBIN 28 pg (25-34); MEAN CORPUSCULAR HGB CONC 32 g/dL (32-36); MEAN CORPUSCULAR VOLUME 86 fL (80-99); MONOCYTES # (AUTO) 1.4 10^3/uL (0.0-1.0); MONOCYTES % (AUTO) 9 % (0-12); NEUTROPHILS % (AUTO) 78 % (42-75); PLATELET COUNT 220 10^3/uL (130-400); WHITE BLOOD COUNT 15.3 10^3/uL (4.3-11.0)
[2021-07-18 05:53] LABS: POTASSIUM 3.5 MMOL/L (3.6-5.0)
[2021-07-18 05:54] LABS: CALCIUM 8.9 MG/DL (8.5-10.1)
[2021-07-18 05:58] LABS: CREATININE SERUM 1.39 MG/DL (0.60-1.30)
[2021-07-18 06:01] LABS: MAGNESIUM 2.1 MG/DL (1.6-2.4)
[2021-07-18] MEDS: inSUlin ASPART (NovoLOG) 1 UNIT/0.01 ML (CHARGE PER UNIT) SC SCH (06:05)
[2021-07-18] MEDS ORDERED: LOSARTAN 100 MG (COZAAR) TABLET PO SCH (09:00)
[2021-07-18] MEDS ORDERED: CLOPIDOGREL 75 MG (PLAVIX) TABLET PO SCH (09:00)
[2021-07-18] MEDS ORDERED: ASPIRIN E.C. 81 MG (ECOTRIN) TAB PO SCH (09:00)
[2021-07-18] MEDS: OSELTAMIVIR 75 MG (TAMIFLU) CAPSULE PO SCH (09:13)
[2021-07-18] MEDS: amLODIPine 10 MG (NORVASC) TAB PO SCH (09:13)
[2021-07-18] MEDS: ISOSORBIDE MONONITRATE 30 MG (IMDUR) TAB PO SCH (09:13)
[2021-07-18] MEDS: meTOprolol SUCCINATE 100 MG (TOPROL XL) TAB PO SCH (09:14)
[2021-07-18] MEDS ORDERED: AMLO-251 PO (09:46)
[2021-07-18] MEDS ORDERED: CLOP75TA28 PO (09:46)
[2021-07-18] MEDS ORDERED: OSLT75C PO (09:46)
[2021-07-18] MEDS ORDERED: MTP100TCR PO (09:46)
[2021-07-18] MEDS ORDERED: ISOS30TA82 PO (09:46)
[2021-07-18] MEDS ORDERED: ATOR40TA70 PO (09:46)
[2021-07-18] MEDS ORDERED: HYDR25TA4 PO (09:46)
[2021-07-18] MEDS ORDERED: LOSA100T57 PO (09:46)
--- NOTE | 2021-07-18 10:14 | Discharge Inst-Post CATH ---
Discharge Inst-CATH/EP Problems Reviewed?: Yes Post Cardiac Cath/EP D/C Inst Follow Up/Plan Hold Metformin until Tuesday, July 20, [address] Velazquez in 2 weeks <b>CARDIAC CATH/EP PROCEDURE DISCHARGE INSTRUCTIONS</b> ACTIVITY * Go Home directly and rest. * Limit activity of the leg (or wrist if it was used) for 7 days including aerobics, swimming, jogging, bicycling, etc. * Restrict stair-climbing for 7 days if possible, if not, climb up with your non-cath leg, then bring together on the same step. * Avoid lifting, pushing, pulling or excessive movement of the affected extremity for 7 days. * Customary sexual activity may be resumed after 2 days-use caution not to use a position that strains or causes pain to the affected extremity. * No driving for 24 hours. * NO SMOKING. * Avoid straining for bowel movements for 7 days. * Gentle walking on level ground is allowed. * Returning to work will depend on the type of procedure and the results. Your doctor will discuss this with you. CALL YOUR DOCTOR FOR ANY OF THE FOLLOWING: *If bleeding from the puncture site occurs- Apply gentle pressure to site with clean cloth and call your doctor or EMS. * If a knot or lump forms under the skin, increases in size, or causes pain. * If bruising appears to be worsening or moving further down your leg instead of disappearing. * Temperature above 101 F. CARE OF YOUR GROIN INCISION; * Bruising or purple discoloration of the skin near the puncture site is common. * You may shower only, no bathtub bathing for 5 days. Be careful to avoid slip ping as your leg may feel stiff. * If a closure device was used on your femoral artery, please see the attached guide regarding care of the device and your leg. * Leave dressing on FOR 24 hours. CARE OF YOUR WRIST INCISION; * Bruising or purple discoloration of the skin near the puncture site is common. * You may shower. * DO NOT submerge wrist. * Leave dressing on FOR 24 hours. SALVADOR VELAZQUEZ MD Jul 18, 2021 10:14
--- NOTE | 2021-07-18 10:14 | Cardiology Progress Note ---
Subjective Date Seen by Provider: Jul 18, 2021 Time Seen by Provider: 10:11 Subjective/Events-last exam Patient was seen at bedside, laying down comfortably, feeling better. No chest pain. No discomfort. Review of Systems General: No Chills, No Night Sweats, No Fatigue, No Malaise, No Appetite, No Other HEENT: No Head Aches, No Visual Changes, No Eye Pain, No Ear Pain, No Dysphasia, No Sinus Congestion, No Post Nasal Drip, No Sore Throat, No Other Pulmonary: No Dyspnea, No Cough, No Pleuritic Chest Pain, No Other Cardiovascular: No: Chest Pain, Palpitations, Orthopnea, Paroxysmal Noc. Dyspnea, Edema, Lt Headedness, Other Objective-Cardiology Exam Last Set of Vital Signs Vital Signs 07/18/21 07/18/21 07/18/21 07:14 07:19 09:12 Temp 37.1 Pulse 77 Resp 13 B/P (MAP) 162/79 Pulse Ox 97 O2 Delivery Nasal Cannula O2 Flow Rate 2.00 FiO2 98 I&O Intake and Output 07/18/21 00:00 Intake Total 3450 ml Output Total 5700 ml Balance -2250 ml Intake Oral 1200 ml IV Total 2250 ml Output Urine Total 5700 ml General: Alert, Oriented X3, Cooperative HEENT: Atraumatic, PERRLA Neck: Supple, No JVD, No Thyromegaly Lungs: Clear to Auscultation, Normal Air Movement Heart: Regular Rate, Normal S1, Normal S2, No Murmurs Abdomen: Normal Bowel Sounds, Soft, No Tenderness, No Hepatosplenomegaly, No Masses Extremities: No Clubbing, No Cyanosis, No Edema, Normal Pulses, No Tenderness/Swelling Skin: No Rashes, No Breakdown, No Significant Lesion Neuro: Normal Gait, Normal Speech, Strength at 5/5 X4 Ext, Normal Tone, Sensation Intact Psych/Mental Status: Mental Status NL, Mood NL Results Lab Laboratory Tests 07/18/21 04:45 A/P-Cardiology Admission Diagnosis Non-ST elevation myocardial infarction Coronary artery disease Influenza B Hypertensive emergency Assessment/Plan Non-ST elevation myocardial infarction, chest pain and elevated troponin level, no acute EKG changes, cardiac catheterization was done with stenting to the LAD Coronary artery disease, underwent cardiac catheterization in November 2019 after having mild elevation in troponin which showed borderline stenosis in the mid LAD and diagonal artery with FFR 0.91. Cardiac catheterization done on July 18, 2021 with stenting to the LAD: 1. Moderate severe stenosis in the mid LAD successful primary stenting using Dorita 2.5 x 18 mm expanded to 2.75 with excellent results. 2. Moderate stenosis in the first diagonal artery and first obtuse marginal branch nonobstructive disease 3. Normal left ventricular size, ejection fraction 50%, elevated left ventricular end-diastolic pressure Hypertensive emergency, better controlled today. Continue on current medication follow-up as an outpatient Chronic renal insufficiency, chronic kidney disease stage III, worsening renal function. Continue with aggressive hydration Shortness of breath, diaphoresis, tested positive for influenza B, started on Tamiflu Diabetes mellitus, was on Metformin, instructed to hold Metformin until Monday, July 20, 2021 COPD/obstructive sleep apnea, was on CPAP in the past. Obesity, BMI 35, we discussed weight loss SALVADOR HAWKINS MD Jul 18, 2021 10:14
--- NOTE | 2021-07-18 11:49 | Discharge Summary ---
Discharge Summary Hospital Course Was the Problem List Reviewed?: Yes Problems/Dx: (1) NSTEMI (non-ST elevation myocardial infarction) Status: Acute (2) CAD (coronary artery disease) Status: Acute Qualifiers: (3) S/P coronary artery stent placement Status: Acute (4) HTN (hypertension) Status: Acute Qualifiers: Qualified Codes: I10 - Essential (primary) hypertension (5) HLD (hyperlipidemia) Status: Chronic (6) T2DM (type 2 diabetes mellitus) Status: Chronic Qualifiers: Qualified Codes: E11.9 - Type 2 diabetes mellitus without complications (7) Obesity Status: Chronic (8) Influenza B Status: Acute Hospital Course Date of Admission: Jul 16, 2021 at 19:45 Admission Diagnosis : NSTEMI Family Physician/Provider: NafisaLocal Physician Date of Discharge: 07/18/21 Discharge Diagnosis: NSTEMI, CAD, Influenza B Hospital Course: Nelson Das is a 51-year-old male with past medical history of hypertension, diabetes, hyperlipidemia, coronary artery disease, chronic kidney disease, obesity, who presented with chest pain and was admitted with non-ST elevation NV. Cardiology was consulted and assisted with his care. He underwent a left heart catheterization and had a coronary stent placed in his mid LAD. He was started on aspirin and Plavix. He was started on Lipitor. His blood pressure medications were adjusted. He was started on Imdur. His course was complicated by influenza B infection and he was started on Tamiflu. He should follow-up with his primary care physician and Dr. Velazquez as scheduled. He was discharged home in stable condition. Labs and Pending Lab Test: Laboratory Tests 07/17/21 16:31: Glucometer 195H 07/17/21 21:14: Glucometer 162H 07/18/21 04:45: White Blood Count 15.3H, Red Blood Count 5.56H, Hemoglobin 15.4, Hematocrit 48, Mean Corpuscular Volume 86, Mean Corpuscular Hemoglobin 28, Mean Corpuscular Hemoglobin Concent 32, Red Cell Distribution Width 12.8, Platelet Count 220, Mean Platelet Volume 11.0, Immature Granulocyte % (Auto) 1, Neutrophils (%) (Auto) 78H, Lymphocytes (%) (Auto) 12, Monocytes (%) (Auto) 9, Eosinophils (%) (Auto) 0, Basophils (%) (Auto) 0, Neutrophils # (Auto) 12.0H, Lymphocytes # (Auto) 1.8, Monocytes # (Auto) 1.4H, Eosinophils # (Auto) 0.0, Basophils # (Auto) 0.0, Immature Granulocyte # (Auto) 0.1, Sodium Level 140, Potassium Level 3.5L, Chloride Level 100, Carbon Dioxide Level 20L, Anion Gap 20H, Blood Urea Nitrogen 22H, Creatinine 1.39H, Estimat Glomerular Filtration Rate 54, BUN/Creatinine Ratio 16, Glucose Level 150H, Calcium Level 8.9, Magnesium Level 2.1 Microbiology 07/16/21 Blood Culture - Preliminary, Resulted Staph, 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) Home Meds Active Atorvastatin Calcium 40 Mg Tablet 40 Mg PO HS 30 Days Tamiflu (Oseltamivir Phosphate) 75 Mg Cap 75 Mg PO BID 4 Days Hydrochlorothiazide 25 Mg Tablet 25 Mg PO DAILY 30 Days Losartan Potassium 100 Mg Tablet 100 Mg PO DAILY 30 Days Amlodipine Besylate 10 Mg Tablet 10 Mg PO DAILY 30 Days Metoprolol Succinate 100 Mg Tab.er.24h 100 Mg PO DAILY 30 Days Isosorbide Mononitrate ER (Isosorbide Mononitrate) 30 Mg Tab.er.24h 30 Mg PO DAILY 30 Days Clopidogrel (Clopidogrel Bisulfate) 75 Mg Tablet 75 Mg PO DAILY 30 Days Metformin HCl 500 Mg Tablet 500 Mg PO BID 30 Days Novolog Flexpen (Insulin Aspart) 300 Units/3 Ml Solution 6 Units SQ AC 30 Days Levemir (Insulin Determir) 1,000 Units/10 Ml Soln 25 Units SQ HS 30 Days Aspirin EC (Aspirin) 81 Mg Tablet.dr 81 Mg PO DAILY Fenofibrate (Fenofibrate,Micronized) 134 Mg Capsule 134 Mg PO HS Assessment/Pt Instructions Hold Metformin until Monday. We have changed your blood pressure meds. You have been started on aspirin and Plavix because of your stents. Complete your Tamiflu for influenza B. Follow up with your PCP and Dr. Velazquez as scheduled. Return with worsening chest pain, shortness of breath, or if you feel like you are getting worse. Discharge Planning: <30 minutes discharge planning Discharge Instructions Discharge Diet: No Restrictions Activity as Tolerated: Yes Discharge Physical Examination Vital Signs Vital Signs Date Time Temp Pulse Resp B/P (MAP) Pulse Ox O2 Delivery O2 Flow Rate FiO2 07/18/21 09:12 77 162/79 07/18/21 07:19 Nasal Cannula 2.00 98 07/18/21 07:14 37.1 13 97 General Appearance: No Apparent Distress, Obese Respiratory: Lungs Clear, Normal Breath Sounds, No Respiratory Distress Cardiovascular: Regular Rate, Rhythm, No Edema, No Murmur Gastrointestinal: Normal Bowel Sounds, Non Tender, Soft Extremity: Normal Inspection, Non Tender, No Pedal Edema Skin: Normal Color, Warm/Dry Neurologic/Psychiatric: Alert, Oriented x3, No Motor/Sensory Deficits, Normal Mood/Affect Allergies: Coded Allergies: codeine (Verified Allergy, Unknown, 12/13/19) N/V/D fish derived (Unverified Allergy, Unknown, 12/13/19) Copy Copies To 1: GERALDINE BRASWELL DO Discharge Summary Date of Admission Jul 16, 2021 at 19:45 Date of Discharge Discharge Date: Jul 18, 2021 Discharge Time: 11:48 Admission Diagnosis NSTEMI Consults/Procedures Consulations Cardiology Procedures Left heart catheterization and coronary artery stenting Discharge Diagnosis NSTEMI CAD s/p coronary artery stent placement Influenza B (1) NSTEMI (non-ST elevation myocardial infarction) Status: Acute (2) CAD (coronary artery disease) Status: Acute Qualifiers: (3) S/P coronary artery stent placement Status: Acute (4) HTN (hypertension) Status: Acute Qualifiers: Qualified Codes: I10 - Essential (primary) hypertension (5) HLD (hyperlipidemia) Status: Chronic (6) T2DM (type 2 diabetes mellitus) Status: Chronic Qualifiers: Qualified Codes: E11.9 - Type 2 diabetes mellitus without complications (7) Obesity Status: Chronic (8) Influenza B Status: Acute HANNAH RUELAS MD Jul 18, 2021 11:49
== END 2021-07-18 10:48 | disposition home or self-care (01) | DRG 249 ==
LOC: CSD 19:45
PROVIDERS: ADMIT Internal Medicine; ATTEND Internal Medicine
PROC: 02H03DZ Insertion of Intraluminal Device into Coronary Artery, One Artery, Percutaneous Approach (ICD-10-PCS; principal; 2021-07-17)
PROC: 4A023N7 Measurement of Cardiac Sampling and Pressure, Left Heart, Percutaneous Approach (ICD-10-PCS; 2021-07-17)
PROC: B2111ZZ Fluoroscopy of Multiple Coronary Arteries using Low Osmolar Contrast (ICD-10-PCS; 2021-07-17)
PROC: B2151ZZ Fluoroscopy of Left Heart using Low Osmolar Contrast (ICD-10-PCS; 2021-07-17)
DX: I21.4 Non-ST elevation (NSTEMI) myocardial infarction (principal); I16.1 Hypertensive emergency; I12.9 Hypertensive chronic kidney disease with stage 1 through stage 4 chronic kidney disease, or unspecified chronic kidney disease; E11.22 Type 2 diabetes mellitus with diabetic chronic kidney disease; N18.30 Chronic kidney disease, stage 3 unspecified; I25.10 Atherosclerotic heart disease of native coronary artery without angina pectoris; J44.9 Chronic obstructive pulmonary disease, unspecified; J10.1 Influenza due to other identified influenza virus with other respiratory manifestations; G47.33 Obstructive sleep apnea (adult) (pediatric); E66.9 Obesity, unspecified; E78.5 Hyperlipidemia, unspecified; K21.9 Gastro-esophageal reflux disease without esophagitis; I45.10 Unspecified right bundle-branch block; Z88.5 Allergy status to narcotic agent; Z68.35 Body mass index [BMI] 35.0-35.9, adult; Z79.4 Long term (current) use of insulin
CPT/HCPCS: 36415; 80048; 80053; 80061; 82947; 83735; 84145; 84484; 85007; 85025; 85027; 85610; 85730; 87040; 87420; 87804; 93005

== ENCOUNTER → 2021-08-13 | Outpatient (CLI) | payer BC ==
[~2021-08-13] MED LIST changes: +AMLO-251 PO; +ATOR40TA70 PO; +CLOP75TA28 PO; +HYDR25TA4 PO; +ISOS30TA82 PO; +LOSA100T57 PO; +MTP100TCR PO; +OSLT75C PO
== END ==
LOC: CARD 08:16
PROVIDERS: ATTEND Physician Assistant
DX: I11.9 Hypertensive heart disease without heart failure (principal); I25.10 Atherosclerotic heart disease of native coronary artery without angina pectoris
CPT/HCPCS: 93306

== ENCOUNTER → 2022-09-19 | Outpatient (CLI) | payer BC ==
[~2022-09-19] VITALS: Ht 182 cm; Wt 123.0 kg
[~2022-09-19] MED LIST changes: +CATHETER FLUSH 10 ML SYR IVP PRN; -FENO134C PO; +FENO134C21 PO; +REGADENOSON 0.4 MG/5 ML SYR (LEXISCAN) IV ONE
[2022-09-19 11:29] VITALS: BP 198/107
--- NOTE | 2022-09-19 16:16 | Cardiology Stress Test Report ---
Stress Test Report Date of Procedure/Referring: Date of Procedure: Sep 19, 2022 PCP No,Local Physician Admitting Physician Admitting Physician: Attending Physician: Divina Agrawal Baseline Heart Rate: 68 Baseline Blood Pressure: Blood Pressure Systolic: 198 Blood Pressure Diastolic: 107 Baseline Vitals Vital Signs Date Time Temp Pulse Resp B/P (MAP) Pulse Ox O2 Delivery O2 Flow Rate FiO2 09/19/22 11:29 63 198/107 (137) 98 Baseline EKG: Baseline EKG: RBBB Summary After explaining the procedure to the patient, he signed a consent and then brought to the stress nuclear laboratory. Patient received 0.4 mg Lexiscan for stress test, ECG, heart rate and blood pressure were monitored continuously. Resting and stress dose of radio tracer were injected, imaging was acquired and reviewed in short axis, horizontal long axis and vertical long axis views. TID: 0.99 SSS: 12 SDS: 1 EF: 46 1. Patient tolerated Lexiscan well 2. Baseline right bundle branch block persisted during test 3. Fixed defect involving the inferior wall and inferoapical segment 4. Normal left ventricular size, hypokinesia of the inferior wall, ejection fraction 46% SALVADOR HAWKINS MD Sep 19, 2022 16:16
== END ==
LOC: CARD 10:15
PROVIDERS: ATTEND Physician Assistant
DX: I10 Essential (primary) hypertension (principal); I25.10 Atherosclerotic heart disease of native coronary artery without angina pectoris
CPT/HCPCS: 78452; 93017; A9502